=== PATIENT | male | born 1980 | race Caucasian/White ===

== ENCOUNTER → 2017-04-26 09:48 | Outpatient (CLI) | payer OTHER, SELFPAY ==
[2017-04-26 12:14] LABS: Absolute Lymphocyte Count 1.46 X10^3/ul (0.83-4.51); Absolute Neutrophil Count 6.9 X10^3/uL (2.0-7.7); Basophil# 0.04 X10^3/uL; Basophil% 0.4 % (0-1); Eosinophil# 0.39 X10^3/uL; Eosinophils% 4.2 % (0-5); Hematocrit 44.3 % (40-54); Hemoglobin 14.4 g/dl (13.0-16.5); Lymphocyte # 1.46 X10^3/ul (4.0); Lymphocyte % 15.9 % (19-41); Mean Corp Hgb Conc 32.5 g/gl (32-36); Mean Corpuscular Hgb 27.9 pg (27.0-32.0); Mean Corpuscular Volume 85.9 fL (80-94); Mean Platelet Vol. 9.6 fl (6.2-12.0); Monocyte# 0.36 X10^3/uL; Monocyte% 3.9 % (0-10); Neutrophil # 6.92 X10^3/uL (2.7-7.7); Neutrophil % 75.4 % (47-70); Platelet Count 237 K/mm3 (150-450); RBC Distribution Width CV 13.9 % (11.6-14.6); RBC Distribution Width SD 43.5 fl (35.1-43.9); Red Blood Count 5.16 M/mm3 (4.6-6.2); White Blood Count 9.2 K/mm3 (4.4-11.0)
[2017-04-26 12:21] LABS: POSITIVE COUNT NO; POSITIVE DIFFERENTIAL NO; POSITIVE MORPHOLOGY NO
[2017-04-26 12:30] LABS: D-Dimer Quantitative (DVT/PE) < 0.27 FEU/ug/m (0.27-0.49)
== END ==
PROVIDERS: Family Provider Family Medicine; PCP Family Medicine; Visit Provider Family Medicine
DX: R07.9 Chest pain, unspecified (principal)
CPT/HCPCS: 36415; 85025; 85379

== ENCOUNTER 2017-05-22 05:53 | Day surgery (SDC) | payer OTHER, SELFPAY ==
[2017-05-22 06:13] VITALS: BP 150/86; PULSE 79; RESP 14; TEMP 36.3; O2SAT 98; BMI 39.3
[2017-05-22] MEDS: Cefazolin 2 GM in 0.9% Normal Saline 100 ML IV (07:24)
--- NOTE | 2017-05-22 07:30 | RAD_ITS ---
STUDY: X-RAY - RIGHT KNEE REASON FOR EXAM: Postop. TECHNIQUE: A single fluoroscopic view of the knee. COMPARISON: None. FINDINGS: A single AP view demonstrates a pin for anterior cruciate ligament reconstruction. 2 seconds of fluoroscopy time was used. Electronically Signed: Lui Talley MD at 11:17 EDT Tel , Service support , RAD/Knee 1 or 2 Views
--- NOTE | 2017-05-22 07:33 | PCM.DC.ORTHO ---
Discharge Diet: No Restrictions - ttwb right leg, may range knee 0-90, ankle pumps as much as possible and use home ice machine as much as possible, remove dressing in 4 days and apply bandaids to incision, if not draining may get incision wet in shower, call with calf pain or sob or other concerns, start xarelto tonight Discharge Activity: May Not Drive May shower in (days): 1 Ice area for (Minutes): 20 - Every hour while awake. Weight Bearing Status: Weight bearing as tolerated Keep extremity elevated above heart level: Operative Extremity Call your doctor if your incision/area has: Continuous Slow Oozing, Sudden Increased Bleeding, Increased Pain/ Swelling, Increased Redness, Foul Smelling Discharge Call your doctor if you observe: Fever of 101 or Higher, Coldness, Increased Pain, Numbness or Tingling, Change in Color, Calf discomfort Allergies/Adverse Reactions: Allergies No Known Allergies Allergy (Verified 05/15/17 10:02) Medications to take at Discharge Acetaminophen/Codeine #3 [Tylenol #3 Tablet] 1 - 2 tablet PO Q6H PRN PRN #30 tablet 05/22/17 Rivaroxaban [Xarelto] 10 mg PO DAILY #90 tab 05/22/17 Zolpidem Tartrate [Ambien (Generic)] 5 mg PO QHS PRN PRN #14 tablet 05/22/17 The following prescriptions were given: Acetaminophen/Codeine #3 [Tylenol #3 Tablet] 1 - 2 tablet PO Q6H PRN PRN #30 tablet PRN Reason: Pain Rivaroxaban [Xarelto] 10 mg PO DAILY #90 tab Zolpidem Tartrate [Ambien (Generic)] 5 mg PO QHS PRN PRN #14 tablet PRN Reason: Insomnia Primary Care Physician: Saurabh Zavala MD [Primary Care Provider] - Please Follow Up With: Rosette Davidson, DO - [phone]
--- NOTE | 2017-05-22 07:33 | PCM.OPRPT ---
Report of Operation Date of Procedure: 05/22/17 Pre-Operative Diagnosis: right knee acl tear, medial and lateral meniscus tears, osteoarthritis/synovitis Post-Operative Diagnosis: same Surgery/Procedure Performed:: sark, acl reconstruction with allograft, partial medial and lateral meniscectomies, synovectomy Type of Anesthesia:: Block,Regional, General Anesthesiologist: Salomón Ng Estimated Blood Loss (mL): minimal Fluids Replaced: 1500ml lr Description of Procedure: Preop note Patient seen and examined in preoperative holding area. Right leg was marked. Gas risks benefits and alternatives surgery. Patient is in dealing with this for quite some time had a work injury ACL tear and he was bone grafted and now he comes back for his revision ACL surgery. On MRI of questionable new versus old medial and/or lateral meniscus tears. We did get a CAT scan that showed that he had good bone growth and fellow of his tunnels. Risks including but not limited to blood loss, blood clot, infection, neurovascular injury, failure procedure, loss of life and loss of limb. 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 We will proceed with right knee arthroscopy ACL reconstruction with allograft repair is indicated. We also did discuss the wrist with allograft hepatitis C HIV etc. patient is aware like proceed as aforementioned. Operative note Patient seen and examined holding area. Right knee was marked. Patient is brought to the operating room placed supine on the operating room table. Signing, anesthesia, antibiotics were administered. All bony prominences well-padded SCDs placed on his contralateral limb. The right leg was prepped and draped in usual sterile fashion with a tourniquet around his upper thigh. We used his previous incision for our diagnostic arthroscopy. The leg was elevated exsanguinated and tourniquet was raised her pressure of 250 torr. Timeout was performed. We then used an 11 blade to create her anterior lateral portal we began our diagnostic arthroscopy. He has some fibrillated changes in the inferior pole of his patella the rest of his patellofemoral joint was intact. We then moved to the medial joint line created our anterior medial portal under direct visualization. We are then able to insert the probe and noted that he had good residual remnant meniscus however is a little bit of fraying so we did debride that with a combination of a shaver and basket. We reinserted the probe to ensure that we had good relief remaining meniscus which we did have. We then moved to the notch. The ACL was obviously torn there is some hypertrophic scarring the PCL is present within the notch. We then use a combination of a shaver and a burner and a bur to perform a notchplasty. We then moved to the lateral joint line. There is a slight lateral disc tear at the mid body. This was gently resected back with a basket and shaver as well to stable rim. We then reinserted a probe to ensure that we had stability less than which we did have. Patient had extensive synovitis and scarring as this was his third surgery for this injury. This did quite take a quite a bit of time to resect back the scar tissue. The back on the back table the ACL was repaired in standard technique. We used a nonirradiated allograft that was measured to be 8.5 in the back table. We then prepared our femoral tunnel in standard fashion using a flip cutter and making a small incision on the lateral femoral distal femur in standard technique the ring back about 25 mm we then drilled our tibial tunnel. We irrigated with copious amounts of sterile saline ensuring that we had all bony debris removed we visualized both the femoral and tibial tunnels ensure we had good bony cortex and then we had a great on back wall and the femoral side as well. We then placed our graft through into and flipped the button on the lateral femoral cortex we also took fluoroscopy to ensure that we had flipped it on that was in position on the lateral femoral cortex which it was. We then cycled the graft 25 times and then pulling distally with the graft and with a posterior drawer we placed our 9 x 28 by composite bio composite screw. Please note that prior to this we did extend the knee noted we had no impingement anteriorly and full extension. We then went back into the need to ensure that we had good stability of our repair and that there is no encroachment of the joint with a screw which we did not have. Again the knee was irrigated with copious amounts of sterile saline. The remnant residual ACL graft was truncated at the distal end and the incision closed with deep 2-0 Vicryl interrupted 4-0 running Monocryl and the portals were closed with interrupted 4-0 nylon suture sterile dressings and a brace locked in extension was placed. Patient may move brace 0-90?. Patient received a postoperative regional block in the OR. Tourniquet was deflated for total working time of 80 minutes. Patient tolerated procedure well there are no comp occasions. Patient transferred to the recovery room in stable condition Postoperative note Weightbearing right leg for 2 weeks May move leg 0-90 as tolerated next Call with increased pain numbness tingling or further issues or arise Follow-up in 2 weeks Start Xarelto given Ambien and Tylenol 3 as well Discussed as he is a risk for another blood clot that he should really encouraged ankle pumps and moving as much as possible and to call if he has any increased calf pain or other concerns. This note was generated with [employer] dictation software. It may contain incorrect words, spelling, and punctuation that were not noted in checking the note before signing. Grafts/Implants Used: arthrex tight rope, 9x28 tibial biocomposite screw
[2017-05-22] MEDS: Mupirocin Ointment 22gm Tube 1 APPLIC (09:17)
[2017-05-22 09:43] VITALS: BP 138/93; BP 150/86; PULSE 94; RESP 16; TEMP 36.3; O2SAT 94
[2017-05-22 10:00] VITALS: BP 125/76; BP 150/86; PULSE 83; RESP 16; O2SAT 92
[2017-05-22 10:15] VITALS: BP 128/74; BP 150/86; PULSE 88; RESP 16; O2SAT 92
[2017-05-22 10:31] VITALS: BP 123/71; BP 150/86; PULSE 84; RESP 16; TEMP 36.3; O2SAT 100
[2017-05-22 11:15] VITALS: BP 150/86
== END 2017-05-22 11:20 | disposition home or self-care (01) ==
LOC: SDC 05:55 → AC 05:56
PROVIDERS: Family Provider Family Medicine; PCP Family Medicine; Visit Provider Orthopaedic Surgery
PROC: (CPT 29888; principal; 2017-05-22 07:10)
DX: S83.241A Other tear of medial meniscus, current injury, right knee, initial encounter (principal); S83.281A Other tear of lateral meniscus, current injury, right knee, initial encounter; M17.11 Unilateral primary osteoarthritis, right knee; M65.9 Synovitis and tenosynovitis, unspecified; Z86.718 Personal history of other venous thrombosis and embolism; X58.XXXA Exposure to other specified factors, initial encounter; Y93.89 Activity, other specified; Y92.89 Other specified places as the place of occurrence of the external cause; Y99.0 Civilian activity done for income or pay
CPT/HCPCS: 29880; 29888; 73560; 76000; J7120; J2405

== ENCOUNTER 2017-05-31 14:56 | Emergency (ER) | payer OTHER, SELFPAY ==
[2017-05-31 14:57] VITALS: BP 147/97; PULSE 115; PULSE 122; RESP 16; TEMP 36.5; O2SAT 98; BMI 38.1
--- NOTE | 2017-05-31 15:23 | VDLE_ITS ---
Reason For Study: LEG PAIN RIGHT GSV is normal. CFV is compressible, spontaneous, phasic, competent and demonstrates normal augmentation. FV is compressible, spontaneous, phasic, competent and demonstrates normal augmentation. POP V is compressible, spontaneous, phasic, competent and demonstrates normal augmentation. T/P Trunk is compressible. PTV is compressible. RT PerV is compressible. Procedure Exam performed portable in ED. A preliminary report was called and/or faxed to Dr. Ram. Interpretation Summary Deep veins of the right lower extremity are patent and compressible segmentally. There is no evidence of right lower extremity deep vein thrombosis. Valvular competence appears intact within the proximal deep venous system on the right . The right greater saphenous vein appears patent and compressible segmentally. Ordering Physician: Temo Ram Referring Physician: Rosette Davidson Performed By: Hortencia Avelar RVT
--- NOTE | 2017-05-31 15:31 | ED.DCSUM_ITS ---
- ER Visit Summary Date of Service: 05/31/17 Chief Complaint: Possible DVT History of Present Illness: The patient is a 36 M who had ACL surgery on May [address] Davidson. The surgical site has been doing well. No pain in his knee. He does report pain in his right calf. He has a history of DVT. He is currently on Xarelto. No shortness of breath or chest pain. No cough or hemoptysis. Physical Examination: Vital signs unremarkable for heart rate of 122. Afebrile. Alert and oriented and in no acute distress. Breathing comfortably. Surgical site appears normal. Skin appears normal. Good range of motion. Neurovascular intact distally. He does have some tenderness into his right calf. No significant edema noted. Test Results: Ultrasound pending. Emergency Department Course and Treatment: Patient declined pain medicine while awaiting results. I am not concerned for infection, fracture, or problems directly related to the surgery. This could be myofascial pain, but we will check the ultrasound. Ultrasound was negative. I believe the pain is in his muscle or it may be from his brace. Continue his meds and follow-up with his doctor as planned. Treatment Plan: As above Disposition: Discharged Impression: 1. Right calf pain This note was generated with [employer] dictation software. It may contain incorrect words, spelling, and punctuation that were not noted in review of the chart prior to signing ED Disposition - Plan for ED Patient: Chief Complaint: Lower Extremity Injury Referrals: Saurabh Zavala MD [Primary Care Provider] -
--- NOTE | 2017-05-31 15:51 | ED.DEP ---
ED Disposition - Plan for ED Patient: Chief Complaint: Lower Extremity Injury Instructions: ED DVT Referrals: Saurabh Zavala MD [Primary Care Provider] - Rosette Davidson DO [STAFF PHYSICIAN] -
[2017-05-31 16:09] VITALS: BP 117/52; PULSE 84; RESP 16; O2SAT 97
== END 2017-05-31 16:11 | disposition home or self-care (01) ==
LOC: ED 15:24
PROVIDERS: Emergency Provider Emergency Medicine; Family Provider Family Medicine; PCP Family Medicine
DX: M79.661 Pain in right lower leg (principal); Z98.890 Other specified postprocedural states; Z86.718 Personal history of other venous thrombosis and embolism; Z79.02 Long term (current) use of antithrombotics/antiplatelets
CPT/HCPCS: 93971; 99282

== ENCOUNTER 2017-06-19 14:07 | Emergency (ER) | payer OTHER, SELFPAY ==
[2017-06-19 14:08] VITALS: BP 154/110; PULSE 80; RESP 18; TEMP 36.6; O2SAT 98; BMI 37.8
--- NOTE | 2017-06-19 14:24 | VDLE_ITS ---
Reason For Study: RLE Pain RIGHT LEFT GSV is normal. CFV is compressible, spontaneous, phasic, CFV is compressible, spontaneous, phasic, competent, and demonstrates normal competent and demonstrates normal augmentation. augmentation. FV is compressible, spontaneous, phasic, competent and demonstrates normal augmentation. POP V is compressible, spontaneous, phasic, competent and demonstrates normal augmentation. T/P Trunk is compressible. PTV is compressible. RT PerV is compressible. Procedure Exam performed portable in ED. A preliminary report was called and/or faxed to Dr. Zhao. Interpretation Summary Deep veins of the right lower extremity are patent and compressible segmentally. There is no evidence of right lower extremity deep vein thrombosis. Valvular competence appears intact within the proximal deep venous system on the right . The right greater saphenous vein appears patent and compressible segmentally. Ordering Physician: Jose Armando Zhao Referring Physician: Saurabh Zavala Performed By: Maricruz Patel RDCS, RVT
--- NOTE | 2017-06-19 14:41 | NURSING ---
CALLED VASCULAR LAB, THEY WILL BE OVER AFTER THE 1500 APPT
--- NOTE | 2017-06-19 15:58 | ED.VISSUMM ---
- ER Visit Summary Date of Service: 06/19/17 Chief Complaint: Right calf pain History of Present Illness: The patient is a [address] Saurabh Oconnell and Dr. Davidson. He had a right ACL repair by Dr. Davidson on May 20. Reports that he was doing well until today when he had an episode of pain in his right calf while walking. He describes as a dull pain is 510 at worst and is pain-free currently. States this is similar to when he had a DVT in the past. However, the patient is on 10 mg of Xarelto a day and began this May 21. Physical Examination: Vitals: Stable. Afebrile. General: Well-nourished and well-developed. Head: Normocephalic atraumatic. Neck: Supple, no lymphadenopathy. No JVD. Nontender. Cardiovascular: Regular rate and rhythm. No murmurs. Respiratory: No respiratory distress. Clear to auscultation bilaterally. Abdominal: Soft, nontender, nondistended, normal bowel sounds. No guarding, rebound, or peritoneal signs. Back: Nontender. Extremities: Nontender, no edema. Incisions on the right knee are clean, dry, and intact. There is no erythema or warmth. No tenderness to palpation. Skin: Normal color, no rash. Neurologic: Alert and oriented ?3. Cranial nerves II through XII are intact. Normal strength and sensation. Psych: Normal affect. Test Results: Right lower extremity Doppler was negative. Emergency Department Course and Treatment: Patient was reassured. He refused pain medications. Treatment Plan: Patient will be discharged instructions to follow Dr. Davidson as previously scheduled. Disposition: To home in improved and stable condition. Impression: 1. 1 month status post right ACL repair. 2. Right calf pain. This note was generated with [employer] dictation software. It may contain incorrect words, spelling, and punctuation that were not noted in review of the chart prior to signing ED Disposition - Plan for ED Patient: Disposition: Home or Assisted Living Chief Complaint: Lower Extremity Injury Instructions: ED Muscle Aching Referrals: Rosette Davidson DO [STAFF PHYSICIAN] - Keep Jason appointment
[2017-06-19 16:27] VITALS: BP 118/79; PULSE 64; RESP 17; O2SAT 97
== END 2017-06-19 16:28 | disposition home or self-care (01) ==
LOC: ED 14:53
PROVIDERS: Emergency Provider Emergency Medicine; Family Provider Family Medicine; PCP Family Medicine
DX: M79.661 Pain in right lower leg (principal); Z98.890 Other specified postprocedural states; Z86.718 Personal history of other venous thrombosis and embolism; Z79.02 Long term (current) use of antithrombotics/antiplatelets; Z79.899 Other long term (current) drug therapy
CPT/HCPCS: 93971; 99282

== ENCOUNTER 2017-08-14 10:30 | Outpatient (RCR) | payer OTHER, SELFPAY ==
--- NOTE | 2017-06-30 12:24 | HP.PTEVAL ---
Patient's Visit Information CASSIA ZENG Jr. is a 37 year old M referred to Physical Therapy by Rosette Davidson DO with a diagnosis of SPRAIN ANTERIOR CRUCIATE LIGAMNET RIGHT KNEE. Date of Evaluation: 06/28/17 Physical Therapist: Hudson Mcclain PT, - Visit Plan Frequency: 3x /Week Duration: 6 Weeks Plan: * SEE PROTOCAL GUIDELINES FOR ACL CONSTRUCTION*. S/P ACL RECONSTRUCTION WITH ALLOGRAFT May --4WEEKS POST OP JULY 01. --MAY USE FES TO QUAD-- - Subjective Subjective: This 37 y/o male presents to physical therapy with penelope anrterior cruciate ligamnent right knee. Patient underwent s/p ACL reconstruction allograft and menisectomy medial/lateral May done by Dr Skinner at [facility] . Patient d/c to home with NWB with crutches 2weeks,June 04 WBAT with crutches knee brace locked. Patient weaned self from crutches .Patient brace locked when walking or sleeping .Denies parathesia/tingling.Patient had venous doppler test to r/o DVT due pain iin calf which eas negative. 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 Seen DR Davidson seen prevous MRI showed ACL tear. Patient had prior PT before surgery for ROM/strength. Patient impairments affects quality of life and RTW . Patient is on light duty.Patient stairs one steps at a time. 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 SOCIAL: single. HOBBIES: hunting /golfing - Pain Right Knee Pain Intensity (Out of 10): 0 Pain Intensity Range: 10 - Objective POSTURE: WFL. GAIT: ambulates with KNEE brace locked slight decrease stance. NEURO: inact. EDEMA: 43 cm joint line. QUAD ATROPHIED: 6 above 50.3 cm. AROM:3-110 SUPINE KNEE FLEXION. QUAD SET: poor. PROPRIOCEPTION : poor. MMT:quads 3+/5/hams 4-/5,hip flexion/abduction 4-/5 ,ankle 4/5. FLEXABLITY : HAMS MIN TIGHT - Goals Goal 1:: Independant with HEP per protocal. Goal Time Frame: 8-12 Weeks Goal 2:: Patient ambulate with normal gutierrez swing phase receproca pattern Goal Time Frame: 12-16 Weeks Goal 3:: Patient to improve knee right symmtrical left to asend/desend 12 steps alternating. Goal Time Frame: 12-16 Weeks Goal 4:: Patient increase strength og quads/hams/hip 5/5 to improve function with RTW. Goal Time Frame: 12-16 Weeks Goal 5:: Patient to improve proprioception and motor control to normal Goal Time Frame: 12-16 Weeks Goal 6:: Patient to return to job demands and [place] chores with no limitations. Goal Time Frame: 12-16 Weeks - Rehabilitation Potential Physical Therapy Diagnosis: Patient underwent s/p ACL reconstruction Aprril . Intailly,patient was NWB RLE knee immoblizer with knee brace locked progressed with WBAT with no crutches knee brace locked. Patient has current impairments with decrease ROM ,strength ,prioprioception ,gait. and RTW thus benifit from skilled PT. Rehabilitation Potential: Good - Anticipated Interventions Patient/Client Instruction: Educate patient on: Condition, Plan of Care, Risk Factors For the Purpose of:: To decrease pain, To increase ROM, To improve muscle performance and motor function, To improve ability to perform ADL's, To increase tolerance to activity/condition/position, To improve performance and independence with ADL's, To improve ability of physical actions for home/community/work/leisure, To improve health of tissue, To decrease soft tissue restriction, To increase flexibility/ROM, To improve balance, To improve ability to perform tasks related to life management Therapeutic Exercise to Include: Strength training, Power training, Endurance training, Balance training, Coordination, Flexibilty training, Gait and locomotor training, Passive ROM, Active ROM Comment: SEE PROTOCAL AND GUIDELINE For the Purpose of:: To decrease pain, To increase ROM, To improve muscle performance and motor function, To improve ability to perform ADL's, To increase tolerance to activity/condition/position, To improve ability of physical actions for home/community/work/leisure, To improve gait and locomotor functions, To improve health of tissue, To decrease soft tissue restriction, To increase flexibility/ROM, To improve endurance, To improve balance, To improve ability to perform tasks related to life management Functional electric stimulation: Yes TENS: Yes IF ES: Yes Cryotherapy (ice pack, ice massage): Yes Thermo therapy (hot pack): Yes For the Purpose of:: To decrease pain, To increase ROM, To improve muscle performance and motor function, To increase tolerance to activity/condition/position, To improve ability of physical actions for home/community/work/leisure, To improve health of tissue, To decrease soft tissue restriction, To increase flexibility/ROM, To improve endurance, To improve balance, To improve ability to perform tasks related to life management Thank you for the opportunity to evaluate your patient. For Medicare and Medicare HMO plans, please review the plan of care and approve it. It will need to be FAXED BACK to us at [phone] for Medicare purposes. Please let me know if there are questions or concerns regarding this plan of care. Physician Signature: Date:
--- NOTE | 2017-06-30 12:31 | HP.PTEVAL ---
Patient's Visit Information CASSIA ZENG Jr. is a 37 year old M referred to Physical Therapy by Rosette Davidsno DO with a diagnosis of SPRAIN ANTERIOR CRUCIATE LIGAMNET RIGHT KNEE. Date of Evaluation: 06/28/17 Physical Therapist: Hudson Mcclain PT, - Visit Plan Frequency: 3x /Week Duration: 6 Weeks Plan: * SEE PROTOCAL GUIDELINES FOR ACL CONSTRUCTION*. S/P ACL RECONSTRUCTION WITH ALLOGRAFT May --6 WEEKS POST OP JULY 03. --MAY USE FES TO QUAD-- - Subjective Subjective: This 37 y/o male presents to physical therapy with penelope anrterior cruciate ligamnent right knee. Patient underwent s/p ACL reconstruction allograft and menisectomy medial/lateral May done by Dr Skinner at [facility] . Patient d/c to home with NWB with crutches 2weeks,June 04 WBAT with crutches knee brace locked. Patient weaned self from crutches .Patient brace locked when walking or sleeping .Denies parathesia/tingling.Patient had venous doppler test to r/o DVT due pain iin calf which eas negative. 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 Seen DR Davidson seen prevous MRI showed ACL tear. Patient had prior PT before surgery for ROM/strength. Patient impairments affects quality of life and RTW . Patient is on light duty.Patient stairs one steps at a time. 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 SOCIAL: single. HOBBIES: hunting /golfing - Pain Right Knee Pain Intensity (Out of 10): 0 Pain Intensity Range: 10 - Objective POSTURE: WFL. GAIT: ambulates with KNEE brace locked slight decrease stance. NEURO: inact. EDEMA: 43 cm joint line. QUAD ATROPHIED: 6 above 50.3 cm. AROM:3-110 SUPINE KNEE FLEXION. QUAD SET: poor. PROPRIOCEPTION : poor. MMT:quads 3+/5/hams 4-/5,hip flexion/abduction 4-/5 ,ankle 4/5. FLEXABLITY : HAMS MIN TIGHT - Goals Goal 1:: Independant with HEP per protocal. Goal Time Frame: 8-12 Weeks Goal 2:: Patient ambulate with normal gutierrez swing phase receproca pattern Goal Time Frame: 12-16 Weeks Goal 3:: Patient to improve knee right symmtrical left to asend/desend 12 steps alternating. Goal Time Frame: 12-16 Weeks Goal 4:: Patient increase strength of quads/hams/hip 5/5 to improve function with RTW. Goal Time Frame: 12-16 Weeks Goal 5:: Patient to improve proprioception and motor control to normal Goal Time Frame: 12-16 Weeks Goal 6:: Patient to return to job demands and [employer] chores with no limitations. Goal Time Frame: 12-16 Weeks - Rehabilitation Potential Physical Therapy Diagnosis: Patient underwent s/p ACL reconstruction May . Intailly,patient was NWB RLE knee immoblizer with knee brace locked progressed with WBAT with no crutches knee brace locked. Patient has current impairments with decrease ROM ,strength ,prioprioception ,gait. and RTW thus benifit from skilled PT. Rehabilitation Potential: Good - Anticipated Interventions Patient/Client Instruction: Educate patient on: Condition, Plan of Care, Risk Factors For the Purpose of:: To decrease pain, To increase ROM, To improve muscle performance and motor function, To improve ability to perform ADL's, To increase tolerance to activity/condition/position, To improve performance and independence with ADL's, To improve ability of physical actions for home/community/work/leisure, To improve health of tissue, To decrease soft tissue restriction, To increase flexibility/ROM, To improve balance, To improve ability to perform tasks related to life management Therapeutic Exercise to Include: Strength training, Power training, Endurance training, Balance training, Coordination, Flexibilty training, Gait and locomotor training, Passive ROM, Active ROM Comment: SEE PROTOCAL AND GUIDELINE For the Purpose of:: To decrease pain, To increase ROM, To improve muscle performance and motor function, To improve ability to perform ADL's, To increase tolerance to activity/condition/position, To improve ability of physical actions for home/community/work/leisure, To improve gait and locomotor functions, To improve health of tissue, To decrease soft tissue restriction, To increase flexibility/ROM, To improve endurance, To improve balance, To improve ability to perform tasks related to life management Functional electric stimulation: Yes TENS: Yes IF ES: Yes Cryotherapy (ice pack, ice massage): Yes Thermo therapy (hot pack): Yes For the Purpose of:: To decrease pain, To increase ROM, To improve muscle performance and motor function, To increase tolerance to activity/condition/position, To improve ability of physical actions for home/community/work/leisure, To improve health of tissue, To decrease soft tissue restriction, To increase flexibility/ROM, To improve endurance, To improve balance, To improve ability to perform tasks related to life management Thank you for the opportunity to evaluate your patient. For Medicare and Medicare HMO plans, please review the plan of care and approve it. It will need to be FAXED BACK to us at [phone] for Medicare purposes. Please let me know if there are questions or concerns regarding this plan of care. Physician Signature: Date:
--- NOTE | 2017-11-15 13:33 | HP.PT.NRP ---
HP - Discharge Summary (1) - Patient Information CASSIA ZENG Jr. was seen in my office for initial evaluation on 06/28/17. The following Plan of Care was established for this patient: Initial Frequency: 3x /Week Initial Duration: 6 Weeks - Anticipated Interventions Patient/Client Instruction: Educate patient on: Condition, Plan of Care, Risk Factors For the Purpose of:: To decrease pain, To increase ROM, To improve muscle performance and motor function, To improve ability to perform ADL's, To increase tolerance to activity/condition/position, To improve performance and independence with ADL's, To improve ability of physical actions for home/community/work/leisure, To improve health of tissue, To decrease soft tissue restriction, To increase flexibility/ROM, To improve balance, To improve ability to perform tasks related to life management Therapeutic Exercise to Include: Strength training, Power training, Endurance training, Balance training, Coordination, Flexibilty training, Gait and locomotor training, Passive ROM, Active ROM For the Purpose of:: To decrease pain, To increase ROM, To improve muscle performance and motor function, To improve ability to perform ADL's, To increase tolerance to activity/condition/position, To improve ability of physical actions for home/community/work/leisure, To improve gait and locomotor functions, To improve health of tissue, To decrease soft tissue restriction, To increase flexibility/ROM, To improve endurance, To improve balance, To improve ability to perform tasks related to life management Functional electric stimulation: Yes TENS: Yes IF ES: Yes Cryotherapy (ice pack, ice massage): Yes Thermo therapy (hot pack): Yes For the Purpose of:: To decrease pain, To increase ROM, To improve muscle performance and motor function, To increase tolerance to activity/condition/position, To improve ability of physical actions for home/community/work/leisure, To improve health of tissue, To decrease soft tissue restriction, To increase flexibility/ROM, To improve endurance, To improve balance, To improve ability to perform tasks related to life management This patient was last seen in our office 08/14/17. Pertinent comments regarding their Physical therapy will appear below: Patient seen for PT for ACL reconstruction for 18 visits with ROM/STRENGTH/PROPRIOCEPTION per protocal guidelines. Patient received another C-9,but on hold due to injurting toe. Patient at this point is d/c. At this point I will be discontinuing this patient from physical therapy. I would be happy to see this patient again in the future if found appropriate by the physician. Thank you! Hudson Mcclain, PO[place],
== END 2017-08-14 19:00 | disposition home or self-care (01) ==
LOC: PT 10:30
PROVIDERS: Family Provider Family Medicine; PCP Family Medicine; Visit Provider Orthopaedic Surgery
DX: S83.511D Sprain of anterior cruciate ligament of right knee, subsequent encounter (principal)
CPT/HCPCS: 97110; 97161

== ENCOUNTER → 2017-08-30 16:40 | Outpatient (CLI) | payer OTHER, SELFPAY ==
[2017-08-30 20:36] LABS: M R Staph aureus DNA By PCR Negative (Negative); Probe Check PASS; Specimen Processing Control PASS; Staph aureus DNA By PCR NEGATIVE (Negative)
== END ==
PROVIDERS: Family Provider Family Medicine; PCP Family Medicine; Visit Provider Podiatrist
DX: S92.424B Nondisplaced fracture of distal phalanx of right great toe, initial encounter for open fracture (principal); M79.674 Pain in right toe(s)
CPT/HCPCS: 87070; 87205; 87640

== ENCOUNTER 2018-02-17 16:30 | Outpatient (RCR) | payer OTHER, SELFPAY ==
--- NOTE | 2018-01-15 17:37 | HP.PTEVAL ---
Patient's Visit Information CASSIA ZENG Jr. is a 37 year old M referred to Physical Therapy by Rosette Davidson DO with a diagnosis of R ACL reconstruction. Date of Evaluation: 01/10/18 Physical Therapist: Tristan Byrne - Visit Plan Frequency: 2-3x /Week Duration: 6 Weeks Plan: Start with quad, HS, and glute med strengthening. Progress to eccentric strengthening as tolerated. - Subjective Findings: Pt. is here today for his initial evaluation with diagnosis of R ACL reconstruction. Pt. had surgery on 05/22/17. He was previously recieving PT for ROM and strengthening, but had to spot PT due to a foot fracture. He did recieve a new C9 for continued strengthening. 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 He denies N/T, no pain, no difficulty sleeping, but is not back to recreational activities yet. Pt. reports that he no longer has any pain, but does occassionally notice some increased weakness. Pt. is hopeful to increase strength in order to get back to all work and recreational activiteis without issues. - Objective POSTURE: Pt. has normal posture in stance. Pt. has no valgus positioning. Pt. has normal iliasc crest positioning. PALPATION: Pt. has no pain with palpation throghout R knee and calf. NEURO: Pt. has normal sensation and DTR of bilateral achilles/patellar DTR. ROM: R knee 0-0-129deg. L knee 0-0-134deg. MMT: RLE- lianet 5/5 throughout; knee- ext 5-/5, flexion 5-/5; hip- flexion 5-/5, abd 4+/5, ext 4+/5. Core strength- fair;. GAIT: Pt. has normal gait pattern without increae in symptoms. STAIRS: Pt. is able to complete with reciprocal pattern without increase in symptoms. SQUAT: Slight L lateral lean. SLS squat- difficulty with controlled eccentric motion, increased valgus positioning. - Goals Goal 1:: Pt. to be I with HEP. Goal Time Frame: 4-6 Weeks Goal 2:: Pt. to have increased RLE strength by 1/2 grade of all effected musculature. Goal Time Frame: 4-6 Weeks Goal 3:: Pt. to return to all work activities without increase in symptoms. Goal Time Frame: 4-6 Weeks Goal 4:: Pt. to perform a SLS without visible weakness. - Rehabilitation Potential Physical Therapy Diagnosis: Pt. had a R ACL reconstruction and as subsequent weakness. He would benefit from continued strengthening, both quads and HS in eccentric fashion. Pt. would benefit from further work like strengthening to progress back to full work capacity. Rehabilitation Potential: Excellent - Anticipated Interventions Patient/Client Instruction: Educate patient on: Condition, Plan of Care, Risk Factors, Benefits of Fitness Program For the Purpose of:: To facilitate caregiver knowledge, To improve self management, To prevent re-injury, To improve ability to perform tasks related to life management, To improve tolerance to ADL's Therapeutic Exercise to Include: Strength training, Power training, Endurance training, Balance training, Flexibilty training, Gait and locomotor training, Passive ROM, Active ROM For the Purpose of:: To increase ROM, To improve nutrient delivery to tissue, To increase oxygenation perfusion, To improve muscle performance and motor function, To improve gait and locomotor functions, To improve health of tissue, To decrease soft tissue restriction, To increase flexibility/ROM, To improve endurance, To improve balance Thank you for the opportunity to evaluate your patient. For Medicare and Medicare HMO plans, please review the plan of care and approve it. It will need to be FAXED BACK to us at [phone] for Medicare purposes. For Medicare only, by signing this I certify the plan of care. Please let me know if there are questions or concerns regarding this plan of care. Physician Signature: Date:
--- NOTE | 2018-05-19 18:20 | HP.PTDCSUM ---
HP - PT D/C Summary It has been my pleasure to treat CASSIA ZENG Jr. under orders from Rosette Davidson DO, for the diagnosis of R ACL reconstruction for a total of 12 visit(s). Discharge Date: 02/17/18 Please see the following information for a summary of their discharge status. - Subjective Subjective: Pt. reports that he is no longer having any issues. He feels that is strength is back to normal. Pt. reports no issues with all work activities. - Overall Improvement % Improvement: 99 - Objective Objective/Function: Pt. has full strength throughout BLEs. Pt. reports no issues with squating and all work related activiteis. Pt. has a good HEP and has been independent without issues. Pt. will be DC from PT at this point int yareli. - Goals Goal 1:: Pt. to be I with HEP. Goal Progress: Goal Met Goal 2:: Pt. to have increased RLE strength by 1/2 grade of all effected musculature. Goal Progress: Goal Met Goal 3:: Pt. to return to all work activities without increase in symptoms. Goal Progress: Goal Met Goal 4:: Pt. to perform a SLS without visible weakness. Goal Progress: Goal Met - Plan Plan: DC to HEP. - D/C Information Discharge Comments: Pt. was treated for his ACL post recovery. Pt. was treated with higher end level of strengthenign progressing to functional strengthening. Pt. is no longer having any issues and will be DC from PT at this point in time. If there are questions or concerns regarding this patient's physical therapy, please feel free to call me at [phone]. Thank you for the referral of this patient. Sincerely, Tristan Byrne DPT
== END 2018-02-17 19:00 | disposition home or self-care (01) ==
LOC: PT 16:30
PROVIDERS: Family Provider Family Medicine; PCP Family Medicine; Referring Provider Orthopaedic Surgery; Visit Provider Orthopaedic Surgery
DX: S83.511D Sprain of anterior cruciate ligament of right knee, subsequent encounter (principal)
CPT/HCPCS: 97110; 97164

== ENCOUNTER → 2018-03-11 09:18 | Outpatient (CLI) | payer OTHER, SELFPAY ==
[2018-03-17 16:08] LABS: Dilute Prothrombin Time (dPT) 50.3 sec (0.0-55.0); Dilute Russell Viper Venom 41.7 sec (0.0-47.0); PTT-LA 39.8 sec (0.0-51.9); Thrombin Time 17.4 sec (0.0-23.0); dPT Confirm Ratio 0.94 Ratio (0.00-1.40)
[2018-03-18 12:45] LABS: Hep B Surface Antibodies Non Reactive (.); Interpretation Comment: (.); Protein C Antigen 99 % (60-150); Protein S, Free 95 % (57-157); Protein S, Total 85 % (60-150)
--- OUTSIDE RECORDS SUMMARY | 2018-05-13 10:04 | XMS RPT_ITS ---
:1980 Author Organization OHIP Support Name Relationship Address Phone KELI ZENG Unavailable [address] + [place] [address] [facility] Unavailable [address] + [place] [address] CASSIA ZENG/CATIE Unavailable [address] + [place] [address] [facility] Unavailable [address] + [place] [address] CASSIA ZENG/CATIE Unavailable [address] + [place] [address] [facility] Unavailable [address] + [place] [address] CASSIA ZENG/CATIE Unavailable [address] + [place] [address] [facility] Unavailable [address] + [place] [address] CASSIA ZENG/CATIE Unavailable [address] + [place] [address] [facility] Unavailable [address] + [place] [address] AZUCENA, CASSIA/CATIE Unavailable [address] + [place] [address] [facility] Unavailable [address] + [place] [address] AZUCENA, CASSIA/CATIE Unavailable [address] [phone] [place] [address] [facility] Unavailable [address] + [place] [address] FUNK, CASSIA/CATIE Unavailable [address] [phone] [place] [address] [facility] Unavailable [address] + [place] [address] FUNKELI Kim Unavailable [address] [phone] [place] [address] [facility] Unavailable [address] + [place] [address] FUNKELI Kim Unavailable [address] [phone] [place] [address] [facility] Unavailable [address] + [place] [address] KELI ZENG Unavailable [address] [phone] [place] [address] [facility] Unavailable [address] + [place] [address] FUNKELI Kim Unavailable [address] [phone] [place] [address] [facility] Unavailable [address] + [place] [address] KEIL ZENG Unavailable [address] [phone] [place] [address] [facility] Unavailable [address] + [place] [address] FUNKELI Kim Unavailable [address] [phone] [place] [address] [facility] Unavailable [address] + [place] [address] FUNELVIRA KimTE Unavailable [address] [phone] [place] [address] [facility] Unavailable [address] + [place] [address] FUNKELVIRATE Unavailable [address] [phone] [place] [address] [facility] Unavailable [address] + [place] [address] Care Team Providers Name Role Phone Saurabh Zavala Attending Unavailable Zavala, Saurabh Primary Care Unavailable Zavala, Saurabh Attending Unavailable Zavala, Saurabh Primary Care Unavailable Chicorelli, Rosette Attending Unavailable Zavala, Saurabh Referring Unavailable Zavala, Saurabh Primary Care Unavailable Chicorelli, Rosette Attending Unavailable Zavala, Saurabh Primary Care Unavailable Chicorelli, Rosette Referring Unavailable Chicorelli, Rosette Attending Unavailable Zavala, Saurabh Referring Unavailable Zavala, Saurabh Primary Care Unavailable Zavala, Saurabh Primary Care Unavailable Temo Ram Attending Unavailable Chicorelli, Rosette Attending Unavailable Zavala, Saurabh Referring Unavailable Zavala, Saurabh Primary Care Unavailable Chicorelli, Rosette Attending Unavailable Chicorelli, Rosette Attending Unavailable Zavala, Saurabh Referring Unavailable Zavala, Saurabh Primary Care Unavailable Jose Armando Zhao Attending Unavailable Chicorelli, Rosette Attending Unavailable Chicorelli, Rosette Referring Unavailable Zavala, Saurabh Primary Care Unavailable Chicorelli, Rosette Attending Unavailable Zavala, Saurabh Referring Unavailable Zavala, Saurabh Primary Care Unavailable Chicorelli, Rosette Attending Unavailable Zavala, Saurabh Referring Unavailable Zavala, Saurabh Primary Care Unavailable Leighton Turner Attending Unavailable Johnny, Leighton Referring Unavailable Zavala, Saurabh Primary Care Unavailable Chicorelli, Rosette Attending Unavailable Zavala, Saurabh Referring Unavailable Zavala, Saurabh Primary Care Unavailable Chicorelli, Rosette Attending Unavailable Chicorelli, Rosette Referring Unavailable Zavala, Saurabh Primary Care Unavailable PROBLEMS PROBLEMS DATE TYPE CONDITION / CODE ATTENDING STATUS SOURCE 03/12/2018 Unknown Z86.718 - Personal Saurabh Zavala Active [place] history of other [facility] venous thrombosis Hospital and embolism / Repository Z86.718(ICD-10) 02/17/2018 Unknown S83.511D - Sprain of Chicorelli, Active [place] anterior cruciate [facility] ligament of right Hospital knee, subsequent Repository encounter / S83.511D(ICD-10) 12/24/2017 Unknown Z98.890 - Other Chicorelli, Active [place] specified [facility] postprocedural Hospital states / Repository Z98.890(ICD-10) 09/25/2017 Unknown S92.424B - Leighton Turner Active [place] Nondisplaced Community fracture of distal Hospital phalanx of right Repository great toe, initial encounter for open fracture / S92.424B(ICD-10) 05/28/2017 Unknown Z47.89 - Encounter Chicorelli, Active [place] for other orthopedic [facility] aftercare / Hospital Z47.89(ICD-10) Repository 05/28/2017 Unknown R21 - Rash and other Chicorelli, Active [place] nonspecific skin [facility] eruption / Hospital R21(ICD-10) Repository 06/10/2017 Unknown S83.241A - Other Chicorelli, Active [place] tear of medial [facility] meniscus, current Hospital injury, right knee, Repository initial encounter / S83.241A(ICD-10) 06/10/2017 Unknown S83.281A - Other Chicorelli, Active [place] tear of lateral [facility] meniscus, current Hospital injury, right knee, Repository initial encounter / S83.281A(ICD-10) 06/10/2017 Unknown M17.11 - Unilateral Ch[place]orelli, Active [place] primary [facility] osteoarthritis, Hospital right knee / Repository M17.11(ICD-10) 04/26/2017 Unknown R07.9 - Chest pain, Saurabh Zavala Active [facility] unspecified / Community R07.9(ICD-10) Hospital Repository PROCEDURES PROCEDURES No Procedure Records FoundRESULTS RESULTS INITAL EVALUATION (1) Observed: 01/16/2018 Status: F Source: [facility] - PT 9:21 AM [facility] REPOSITORY [facility] [place] [address] Fax REHABILITATION SERVICES INITIAL EVALUATION MR#: [id number] Acct: [id number] Name: CASSIA ZENG Jr. Rep #: [id number] : 1980 37 From: Tristan Byrne DPT Referring Dr.: Rosette Davidson DO Status: REG RCR Insurance: [facility] COMP MANAGEMENT [employer] Patient's Visit Information CASSIA ZENG Jr. is a 37 year old M referred to Physical Therapy by Rosette Davidson DO with a diagnosis of R ACL reconstruction. Date of Evaluation: 01/10/18 Physical Therapist: Tristan Byrne - Visit Plan Frequency: 2-3x /Week Duration: 6 Weeks Plan: Start with quad, HS, and glute med strengthening. Progress to eccentric strengthening as tolerated. - Subjective Findings: Pt. is here today for his initial evaluation with diagnosis of R ACL reconstruction. Pt. had surgery on 05/22/17. He was previously recieving PT for ROM and strengthening, but had to spot PT due to a foot fracture. He did recieve a new C9 for continued strengthening. 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 He denies N/T, no pain, no difficulty sleeping, but is not back to recreational activities yet. Pt. reports that he no longer has any pain, but does occassionally notice some increased weakness. Pt. is hopeful to increase strength in order to get back to all work and recreational activiteis without issues. - Objective POSTURE: Pt. has normal posture in stance. Pt. has no valgus positioning. Pt. has normal iliasc crest positioning. PALPATION: Pt. has no pain with palpation throghout R knee and calf. NEURO: Pt. has normal sensation and DTR of bilateral achilles/patellar DTR. ROM: R knee 0-0-129deg. L knee 0-0-134deg. MMT: RLE- lianet 5/5 throughout; knee- ext 5-/5, flexion 5-/5; hip- flexion 5-/5, abd 4+/5, ext 4+/5. Core strength- fair;. GAIT: Pt. has normal gait pattern without increae in symptoms. STAIRS: Pt. is able to complete with reciprocal pattern without increase in symptoms. SQUAT: Slight L lateral lean. SLS squat- difficulty with controlled eccentric motion, increased valgus positioning. - Goals Goal 1:: Pt. to be I with HEP. Goal Time Frame: 4-6 Weeks Goal 2:: Pt. to have increased RLE strength by 1/2 grade of all effected musculature. Goal Time Frame: 4-6 Weeks Goal 3:: Pt. to return to all work activities without increase in symptoms. Goal Time Frame: 4-6 Weeks Goal 4:: Pt. to perform a SLS without visible weakness. - Rehabilitation Potential Physical Therapy Diagnosis: Pt. had a R ACL reconstruction and as subsequent weakness. He would benefit from continued strengthening, both quads and HS in eccentric fashion. Pt. would benefit from further work like strengthening to progress back to full work capacity. Rehabilitation Potential: Excellent - Anticipated Interventions Patient/Client Instruction: Educate patient on: Condition, Plan of Care, Risk Factors, Benefits of Fitness Program For the Purpose of:: To facilitate caregiver knowledge, To improve self management, To prevent re-injury, To improve ability to perform tasks related to life management, To improve tolerance to ADL's Therapeutic Exercise to Include: Strength training, Power training, Endurance training, Balance training, Flexibilty training, Gait and locomotor training, Passive ROM, Active ROM For the Purpose of:: To increase ROM, To improve nutrient delivery to tissue, To increase oxygenation perfusion, To improve muscle performance and motor function, To improve gait and locomotor functions, To improve health of tissue, To decrease soft tissue restriction, To increase flexibility/ROM, To improve endurance, To improve balance Thank you for the opportunity to evaluate your patient. For Medicare and Medicare HMO plans, please review the plan of care and approve it. It will need to be FAXED BACK to us at [phone] for Medicare purposes. For Medicare only, by signing this I certify the plan of care. Please let me know if there are questions or concerns regarding this plan of care. Physician Signature: Date: <Electronically signed by Tristan Byrne DPT> 01/16/18 0921 CC: Rosette Davidson DO; Saurabh Zavala MD CLS Signed ORTHOPEDIC VISIT Observed: 10/31/2017 Status: F Source: [facility] REPORT 10:13 AM [facility] Orthopaedics AND Sports Medicine [address] [place] [address] OFFICE VISIT Date of Service: 10/31/17 MR#: [id number] Acct: [id number] Name: CASSIA ZENG Jr. Rep #: [id number] : 1980 Provider: Rosette Davidson DO Age/Sex: 37/M [place] [facility]: Signed Intake Intake Visit Reasons: RIGHT SHOULDER Is patient in pain?: No Allergies No Known Allergies Allergy (Verified 08/13/17 10:18) Medications Rivaroxaban [Xarelto] 10 mg PO DAILY #90 tab 05/22/17 [Rx Confirmed 07/02/17] Zolpidem Tartrate [Ambien (Generic)] 5 mg PO QHS PRN PRN #14 tab 05/22/17 [Rx Confirmed 07/02/17] hydroxyzine HCl 25 mg tablet 25 mg PO Q6H PRN #40 tab 05/28/17 [Rx Confirmed 07/02/17] triamcinolone acetonide 0.1 % topical cream 1 applic TOPICAL BID #30 g 05/28/17 [Rx Confirmed 07/02/17] PFSH Medical History DVT (deep venous thrombosis) (Acute) Surgical History s/p right ACL reconstruction (Acute) S/P hernia repair (Inactive) S/P right knee arthroscopy (Inactive) s/p right acl (Inactive) Family History Father Diabetes Hypertension Social History Smoking Status: Never smoker HPI RIGHT SHOULDER: Details: CASSIA ZENG is a 37 year old M here today for f/u on right knee ACL recon may 2017. He is not complaining of any pain, denies any swelling or instability. If he is on uneven surface he feels some weakness. He has no skin irritation left over. He continues to take anticoagulants. Denies numbness, tingling or other associated symptoms. He has a f/u with his pcp for reeval of the DVT. He was having calf pain after the foot injury which was when he resumed the Xeralto but he has no calf pain today. He does present in a cast shoe today. Ortho Exam Right Knee Skin/Wound: Yes CDI Contralateral Normal: Yes Swelling: No Homans Sign: No Knee ROM: Yes ROM-Extension -20 to 0, Yes ROM-Flexion 0-140 (115) Examination: No Med jt line tenderness, No Pain with extention, No Lat jt line tenderness, No Pain with flexion Quad Atrophy: Yes Stability: NML: Anterior Drawer Assessment AND Plan 1. History of anterior cruciate ligament surgery Z98.890 Plan Instructed to resume PT for leg strengthening. We will request an extension on PT since his visits were not used due to the foot injury. He can resume work with no heavy lifting from a deep squat. Follow up in 6 months or sooner if pain, swelling, numbness or associated symptoms, or concerns develop. All questions answered. Patient in agreement of plan. Coding Level of Care Code Off vis,est,level 3 Diagnoses History of anterior cruciate ligament surgery Z98.890 10/31/17 1013 <Electronically signed by Rosette Davidson DO> Date Rosette Davidson DO Cosigner Signature: Date (if applicable) CC: MRSA WOUND DNA BY Collected: 08/30/2017 Status: F Source: [facility] PCR 9:37 AM [facility] REPOSITORY Order Comment: Specimen Source? R TOE TYPE CODE TESTS RESULT OUT OF RANGE REFERENCE UNITS LAB L8200.1100 Negative Normal MRSA Negative RESULT LAB L8200.1150 Negative Normal SA RESULT NEGATIVE Performed By: #### L8200.1075 #### [facility] [address] [place], [place], [address] Observed: 08/30/2017 Status: F Source: [facility] CULTURE, WOUND 9:37 AM [facility] REPOSITORY CALL RESULTS TO [phone] Gram Stain Gram Stain No White Blood Cells No organisms seen Wound Culture No growth aerobically. Performed By: #### M100.1400 #### [facility] [address] [place], [address] ED NOTE Observed: 08/27/2017 Status: COMPLETED Source: [place] 12:19 AM [facility] REPOSITORY HNO ID: [id number] Author: Roldan (Rn) VASILE Lima Service: Emergency Medicine Author Type: Registered Nurse Type: ED Notes Filed: 08/27/2017 12:45 AM Note Text: Wound care complete. Bacitracin ointment, telfa pad, and kerlix gauze wrap applied. Post op shoe fitted. Patient using own crutches from knee surgery 3 months ago. States he is very familiar with using crutches and does not need instructions. ED NOTE Observed: 08/27/2017 Status: COMPLETED Source: [place] 12:14 AM [facility] REPOSITORY HNO ID: [id number] Author: Roldan Rincon) VASILE Lima Service: Emergency Medicine Author Type: Registered Nurse Type: ED Notes Filed: 08/27/2017 12:14 AM Note Text: Patient informed: the name of medication, why we are giving it, possible side effects, what they may expect to feel, and was offered a chance to ask questions, prior to the administration of bacitracin and keflex. FOOT 3V AP/LAT/OBL Observed: 08/26/2017 Status: F Source: [facility] 10:59 PM HEALTH SYSTEM REPOSITORY Performed at [facility] APPROVED BY: MARIBELL CARRENO MD FOOT 3V AP/LAT/OBL RIGHT INDICATION: Injury first toe COMPARISON: None TECHNIQUE: AP, oblique and lateral views right foot, 4 films. FINDINGS: No dislocation. There is a comminuted nondisplaced fracture involving the distal end of the distal phalanx first toe and associated soft tissue swelling. No other osseous fracture identified. Small p osterior and plantar calcaneal enthesophytes. IMPRESSION: Comminuted nondisplaced fracture distal end of the distal phalanx first toe with associated soft tissue swelling. No joint dislocation. ED NOTE Observed: 08/26/2017 Status: COMPLETED Source: [place] 10:55 PM [facility] REPOSITORY HNO ID: [id number] Author: Roldan Lima RN Service: Emergency Medicine Author Type: Registered Nurse Type: ED Notes Filed: 08/26/2017 10:55 PM Note Text: Patient informed: the name of medication, why we are giving it, possible side effects, what they may expect to feel, and was offered a chance to ask questions, prior to the administration of adacel. ED NOTE Observed: 08/26/2017 Status: COMPLETED Source: [place] 10:54 PM [facility] REPOSITORY HNO ID: [id number] Author: Roldan Rincon) VASILE Lima Service: Emergency Medicine Author Type: Registered Nurse Type: ED Notes Filed: 08/26/2017 10:56 PM Note Text: Patient returned to the Emergency Department. ED PROV NOTE Observed: 08/26/2017 Status: COMPLETED Source: [place] 10:42 PM [facility] REPOSITORY HNO ID: [id number] Author: Roldan Ellis MD Service: Emergency Medicine Author Type: Physician Type: ED Provider Notes Filed: 08/27/2017 12:10 AM Note Text: ED Provider Note Patient Name: Cassia Zeng SERVICE DATE: 08/26/17 History Patient presents with: Toe Injury Cassia Zeng is a 37 year old male with history of no chronic medical problems who presents with Toe Injury. Patient took nothing for this prior to arrival. - Symptoms began 35 minutes prior to arrival. - Severity: moderate - Timing: constant - Quality: sore - Toe Injury is exacerbated by palpation. - Toe Injury is not exacerbated by elevation. - Symptoms are associated with bleeding around the right great toenail. - Symptoms are not associated with any other injury. - Improved by rest. - Not improved by walking While at training exercises for work accidentally dropped a fire extinguisher onto his right great toe. PAST MEDICAL HISTORY Diagnosis Date - DVT (deep venous thrombosis) (HCC) - NEGATIVE MEDICAL HISTORY PAST SURGICAL HISTORY Procedure Laterality Date - PAST SURGICAL HISTORY OF acl right knee surg - PAST SURGICAL HISTORY OF eye right - REPAIR ING HERNIA,5+Y/O,REDUCIBL Hernia repair, inguinal right FAMILY HISTORY Problem Relation Age of Onset - Hypertension Father - Lipids Father - Heart Maternal Grandfather - None Mother Social History Social History Main Topics - Smoking status: Never Smoker - Smokeless tobacco: Current User - Alcohol use Yes Comment: 5 drinks a week - Drug use: No - Sexual activity: No ALLERGIES Allergen Reactions - Steroids [Betametha* Review of Systems Constitutional: Negative for chills and fever. Gastrointestinal: Negative for nausea and vomiting. Skin: Positive for wound. Negative for color change, pallor and rash. Allergic/Immunologic: Negative for environmental allergies, food allergies and immunocompromised state. Neurological: Negative for syncope and numbness. Psychiatric/Behavioral: Negative for confusion. The patient is not nervous/anxious. Physical Exam BP 147/97 Pulse 86 Temp (Src) 98 (Temporal Artery) Resp 16 Ht 5' 10 (1.78m) Wt 270 lb (122.5kg) SpO2 97% BMI 38.74 kg/(m2). Physical Exam Constitutional: He is oriented to person, place, and time. He appears well-developed and well-nourished. No distress. obese HENT: Head: Normocephalic and atraumatic. Right Ear: External ear normal. Left Ear: External ear normal. Mouth/Throat: Oropharynx is clear and moist. Eyes: EOM are normal. Right eye exhibits no discharge. Left eye exhibits no discharge. No scleral icterus. Pulmonary/Chest: Effort normal. No respiratory distress. Musculoskeletal: He exhibits edema, tenderness and deformity. right great toenail is partially avulsed proximally with losing some diffuse edema is noted to the digit skin is intact and good circulation Neurological: He is alert and oriented to person, place, and time. No sensory deficit. He exhibits normal muscle tone. Skin: Skin is warm and dry. Capillary refill takes less than 2 seconds. He is not diaphoretic. No erythema. No pallor. Psychiatric: He has a normal mood and affect. His behavior is normal. Judgment and thought content normal. Nursing note and vitals reviewed. Diagnostic Testing ED Labs Ordered and Reviewed - No data to display LAC REPAIR Date/Time: 08/27/2017 12:06 AM Performed by: ROLDAN ELLIS Authorized by: ROLDAN ELLIS Consent: Consent obtained: Verbal Consent given by: Patient Risks discussed: Infection, pain and need for additional repair Alternatives discussed: No treatment Anesthesia (see MAR for exact dosages): Anesthesia method: Nerve block Block needle gauge: 25 G Block anesthetic: Bupivacaine 0.25% w/o epi Block technique: Digital Block injection procedure: Anatomic landmarks identified, introduced needle, incremental injection, anatomic landmarks palpated and negative aspiration for blood Block outcome: Anesthesia achieved Laceration details: Location: Toe Toe location: R big toe Length (cm): 2 Depth (mm): 5 Repair type: Repair type: Intermediate Pre-procedure details: Preparation: Patient was prepped and draped in usual sterile fashion and imaging obtained to evaluate for foreign bodies Exploration: Hemostasis achieved with: Direct pressure Wound exploration: wound explored through full range of motion Wound extent: underlying fracture Wound extent: no foreign bodies/material noted Contaminated: no Treatment: Area cleansed with: Shur-Clens and saline Amount of cleaning: Standard Irrigation solution: Sterile saline Irrigation volume: 250 mL Irrigation method: Syringe Visualized foreign bodies/material removed: no Subcutaneous repair: Suture size: 5-0 (2 cm laceration of the nail matrix was repaired with 5-0 fast absorbing gut) Suture material: Fast-absorbing gut Suture technique: Simple interrupted Number of sutures: 3 Skin repair: Repair method: Sutures (nail was refastened with 2 4-0 nylon sutures) Suture size: 4-0 Suture material: Nylon Suture technique: Simple interrupted Number of sutures: 2 Approximation: Approximation: Close Post-procedure details: Dressing: Antibiotic ointment, non-adherent dressing and splint for protection Patient tolerance of procedure: Tolerated well, no immediate complications Comments: antibiotic given underlying distal tuft fracture of right great toe possible open fracture Medical Decision Making MDM I we'll update his tetanus vaccine is not sure when he last had one digital block of the toe may need to take this nail off once his explorer little bit more going to get an x-ray to evaluate for fracture. ED Course / Clinical Impression wound repaired patient given prophylactic antibiotic he is going to follow up with his orthopedic surgeon for recheck nonweightbearing and crutches until recheck. Plan The patient was DISCHARGED: Counseled patient and father regarding radiology results AND suspected diagnosis AND need for follow- up. Discharged home with verbal and written instructions. They were instructed to return as needed for persistent or worsening symptoms or any new concerns. Condition at time of disposition: improved and stable SIGNATURE: MD Roldan Dumont MD 08/27/17 0010 ORTHOPEDIC VISIT Observed: 08/22/2017 Status: F Source: [facility] REPORT 9:08 AM [facility] Orthopaedics AND Sports Medicine [address] [place] [address] OFFICE VISIT Date of Service: 08/13/17 MR#: [id number] Acct: [id number] Name: CASSIA ZENG Jr. Rep #: [id number] : 1980 Provider: Rosette Davidson DO Age/Sex: 37/M Location[place] [facility] [place] Status: Signed Intake Intake Visit Reasons: RIGHT KNEE Is patient in pain?: No Allergies No Known Allergies Allergy (Verified 08/13/17 10:18) Medications Rivaroxaban [Xarelto] 10 mg PO DAILY #90 tab 05/22/17 [Rx Confirmed 07/02/17] Zolpidem Tartrate [Ambien (Generic)] 5 mg PO QHS PRN PRN #14 tab 05/22/17 [Rx Confirmed 07/02/17] hydroxyzine HCl 25 mg tablet 25 mg PO Q6H PRN #40 tab 05/28/17 [Rx Confirmed 07/02/17] triamcinolone acetonide 0.1 % topical cream 1 applic TOPICAL BID #30 g 05/28/17 [Rx Confirmed 07/02/17] PFSH Medical History DVT (deep venous thrombosis) (Acute) Surgical History s/p right ACL reconstruction (Acute) S/P hernia repair (Inactive) S/P right knee arthroscopy (Inactive) s/p right acl (Inactive) Family History Father Diabetes Hypertension Social History Smoking Status: Never smoker HPI RIGHT KNEE: Details: CASSIA ZENG is a 37 year old M here today for s\p right ACL reconstruction, dos 05/22/17. Patient notes that he is doing well and not having any pain or issues. He denies any instability. Patient is currently in formal physical therapy which is helpful. Patient denies any knee bracing. Denies numbness, tingling or other associated symptoms. Patients incision is fully healed. No calf pain currently, no sob, back to most activities within set limits. DId have a spell of calf pain that was seen in ED with ultrasound of calf which was negative for blood clots and pt states symptoms have gone. ROS Const Reports system reviewed and no additional complaints, except as docu Eyes Reports system reviewed and no additional complaints, except as docu ENT Reports system reviewed and no additional complaints, except as docu Card Reports system reviewed and no additional complaints, except as docu Resp Reports system reviewed and no additional complaints, except as docu GI Reports system reviewed and no additional complaints, except as docu Reports system reviewed and no additional complaints, except as docu Skin/Breast Reports system reviewed and no additional complaints, except as docu Neuro Yes system reviewed and no additional complaints, except as docu Psych Reports system reviewed and no additional complaints, except as docu Endo Reports system reviewed and no additional complaints, except as docu Ortho Exam Right Knee Date of Surgery: 05/22/17 Skin/Wound: Yes CDI, Yes healed Contralateral Normal: Yes Swelling: No Homans Sign: No Knee ROM: Yes ROM-Extension -20 to 0, Yes ROM-Flexion 0-140 (120) Quad Atrophy: Yes Stability: NML: Anterior Drawer Assessment AND Plan 1. Orthopedic aftercare Z47.89 Plan neg doppler and patient back to most normal activities without pain or difficulty. patient has done 3 months of anticoag and since is now back to adls may stop - also d/t neg ultrasound-. instructed patient that if has any calf pain or difficulty to call us and we can evaluate- or if after hours, to go to ER. patient aware and in agreement of plan. Explained that the stiffness is normal, the calf pain has resolved and his last doppler was negative 6wks ago, it is not abnormal to have phlebitis of the right calf. In the future with long car rides and travel he should follow the dvt guidelines. He has good strength today, the swelling is improved and the bump that was irritating earlier has resolved. We will submit for more PT, knee brace and his work restrictions are no cutting or pivoting or jumping. He will take a longer time to fully return due to the number of surgeries. Follow up in 3 months or sooner if pain, swelling, numbness or associated symptoms, or concerns develop. All questions answered. Patient in agreement of plan. Coding Level of Care Code Global Post Op Diagnoses Orthopedic aftercare Z47.89 08/22/17 0908 <Electronically signed by Rosette Davidson DO> Date Rosette Davidson DO Cosigner Signature: Date (if applicable) CC: ORTHOPEDIC VISIT Observed: 07/02/2017 Status: F Source: COREEN REPORT 10:14 AM [facility] REPOSITORY [facility] Orthopaedics AND Sports Medicine [address] [place] [id number] OFFICE VISIT Date of Service: 07/02/17 MR#: [id number] Acct: [id number] Name: CASSIA ZENG Jr. Rep #: [id number] : 1980 Provider: Rosette Davidson DO Age/Sex: 37/M Location: [facility] [place] Status: Signed Intake Intake Visit Reasons: RIGHT KNEE Is patient in pain?: Yes Pain scale (1-10): 1 Allergies No Known Allergies Allergy (Verified 06/19/17 14:10) Medications Rivaroxaban [Xarelto] 10 mg PO DAILY #90 tab 05/22/17 [Rx Confirmed 07/02/17] Zolpidem Tartrate [Ambien (Generic)] 5 mg PO QHS PRN PRN #14 tab 05/22/17 [Rx Confirmed 07/02/17] hydroxyzine HCl 25 mg tablet 25 mg PO Q6H PRN #40 tab 05/28/17 [Rx Confirmed 07/02/17] triamcinolone acetonide 0.1 % topical cream 1 applic TOPICAL BID #30 g 05/28/17 [Rx Confirmed 07/02/17] PFSH Medical History DVT (deep venous thrombosis) (Acute) Surgical History s/p right ACL reconstruction (Acute) S/P hernia repair (Inactive) S/P right knee arthroscopy (Inactive) s/p right acl (Inactive) Family History Father Diabetes Hypertension Social History Smoking Status: Never smoker HPI RIGHT KNEE: Details: CASSIA ZENG is a 37 year old M here today for f/u 05/21/17 right ACL recon. He continues to struggle with quad strengthening but has only been to one session of PT. He is ambulating with the brace in full extension, some swelling and continues to have the bump proximal to the incision. His skin irritation is healing well and there is only evidence near the ankle. He only complains of anterior knee pain with full extension. He does have incisional numbness. No calf pain today. Patient had difficulty getting a refill of his anti coagulant but has plenty left at this point. Ortho Exam Right Knee Skin/Wound: Yes healed Contralateral Normal: Yes Swelling: Yes Homans Sign: No Knee ROM: Yes ROM-Extension -20 to 0, Yes ROM-Flexion 0-140 (110) Examination: Yes Pain with extention Quad Atrophy: Yes Assessment AND Plan 1. Orthopedic aftercare Z47.89 Plan Reviewed his progression, he can wean out of the trom brace and use it if needed unlocked. He can try an otc brace if needed for comfort. The bump near pes may likely remain for a while, its soft and non painful. Remain on same restrictions for another 6wks. He can d/c the anticoagulants in 6wks as long as he remains active. Follow up in 6wks or sooner if pain, swelling, numbness or associated symptoms, or concerns develop. All questions answered. Patient in agreement of plan. Coding Level of Care Code Global Post Op Diagnoses Orthopedic aftercare Z47.89 07/02/17 1014 <Electronically signed by Rosette Davidson DO> Date Rosette Davidson DO Cosigner Signature: Date (if applicable) CC: INITAL EVALUATION (1) Observed: 06/30/2017 Status: F Source: COREEN Cid PT 12:33 PM [facility] REPOSITORY [facility] [address] [place] [address]. [address] [place] [address] Fax REHABILITATION SERVICES INITIAL EVALUATION MR#: [id number] Acct: [id number] Name: CASSIA ZENG Carlos Alberto Ochoa Rep #: [id number] : 1980 37 From: Hudson Mcclain PT, Cert. MDT, OCS Referring Dr.: Rosette Davidson DO Status: REG RCR Insurance: [facility] COMP MANAGEMENT SELF PAY INSURANCE Patient's Visit Information CASSIA Carlos Alberto ZENG Jr. is a 37 year old M referred to Physical Therapy by Rosette Davidson DO with a diagnosis of SPRAIN ANTERIOR CRUCIATE LIGAMNET RIGHT KNEE. Date of Evaluation: 06/28/17 Physical Therapist: Hudson Mcclain PT, - Visit Plan Frequency: 3x /Week Duration: 6 Weeks Plan: * SEE PROTOCAL GUIDELINES FOR ACL CONSTRUCTION*. S/P ACL RECONSTRUCTION WITH ALLOGRAFT May --6 WEEKS POST OP JULY 03. --MAY USE FES TO QUAD-- - Subjective Subjective: This 37 y/o male presents to physical therapy with penelope anrterior cruciate ligamnent right knee. Patient underwent s/p ACL reconstruction allograft and menisectomy medial/lateral May done by Dr Skinner at [facility] . Patient d/c to home with NWB with crutches 2weeks,June 04 WBAT with crutches knee brace locked. Patient weaned self from crutches .Patient brace locked when walking or sleeping .Denies parathesia/tingling.Patient had venous doppler test to r/o DVT due pain iin calf which eas negative. 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 Seen DR Davidson seen prevous MRI showed ACL tear. Patient had prior PT before surgery for ROM/strength. Patient impairments affects quality of life and RTW . Patient is on light duty.Patient stairs one steps at a time. 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 SOCIAL: single. HOBBIES: hunting /golfing - Pain Right Knee Pain Intensity (Out of 10): 0 Pain Intensity Range: 10 - Objective POSTURE: WFL. GAIT: ambulates with KNEE brace locked slight decrease stance. NEURO: inact. EDEMA: 43 cm joint line. QUAD ATROPHIED: 6 above 50.3 cm. AROM:3-110 SUPINE KNEE FLEXION. QUAD SET: poor. PROPRIOCEPTION : poor. MMT:quads 3+/5/hams 4-/5,hip flexion/abduction 4-/5 ,ankle 4/5. FLEXABLITY : HAMS MIN TIGHT - Goals Goal 1:: Independant with HEP per protocal. Goal Time Frame: 8-12 Weeks Goal 2:: Patient ambulate with normal gutierrez swing phase receproca pattern Goal Time Frame: 12-16 Weeks Goal 3:: Patient to improve knee right symmtrical left to asend/desend 12 steps alternating. Goal Time Frame: 12-16 Weeks Goal 4:: Patient increase strength of quads/hams/hip 5/5 to improve function with RTW. Goal Time Frame: 12-16 Weeks Goal 5:: Patient to improve proprioception and motor control to normal Goal Time Frame: 12-16 Weeks Goal 6:: Patient to return to job demands and h[employer] chores with no limitations. Goal Time Frame: 12-16 Weeks - Rehabilitation Potential Physical Therapy Diagnosis: Patient underwent s/p ACL reconstruction May . Intailly,patient was NWB RLE knee immoblizer with knee brace locked progressed with WBAT with no crutches knee brace locked. Patient has current impairments with decrease ROM ,strength ,prioprioception ,gait. and RTW thus benifit from skilled PT. Rehabilitation Potential: Good - Anticipated Interventions Patient/Client Instruction: Educate patient on: Condition, Plan of Care, Risk Factors For the Purpose of:: To decrease pain, To increase ROM, To improve muscle performance and motor function, To improve ability to perform ADL's, To increase tolerance to activity/condition/position, To improve performance and independence with ADL's, To improve ability of physical actions for home/community/work/leisure, To improve health of tissue, To decrease soft tissue restriction, To increase flexibility/ROM, To improve balance, To improve ability to perform tasks related to life management Therapeutic Exercise to Include: Strength training, Power training, Endurance training, Balance training, Coordination, Flexibilty training, Gait and locomotor training, Passive ROM, Active ROM Comment: SEE PROTOCAL AND GUIDELINE For the Purpose of:: To decrease pain, To increase ROM, To improve muscle performance and motor function, To improve ability to perform ADL's, To increase tolerance to activity/condition/position, To improve ability of physical actions for home/community/work/leisure, To improve gait and locomotor functions, To improve health of tissue, To decrease soft tissue restriction, To increase flexibility/ROM, To improve endurance, To improve balance, To improve ability to perform tasks related to life management Functional electric stimulation: Yes TENS: Yes IF ES: Yes Cryotherapy (ice pack, ice massage): Yes Thermo therapy (hot pack): Yes For the Purpose of:: To decrease pain, To increase ROM, To improve muscle performance and motor function, To increase tolerance to activity/condition/position, To improve ability of physical actions for home/community/work/leisure, To improve health of tissue, To decrease soft tissue restriction, To increase flexibility/ROM, To improve endurance, To improve balance, To improve ability to perform tasks related to life management Thank you for the opportunity to evaluate your patient. For Medicare and Medicare HMO plans, please review the plan of care and approve it. It will need to be FAXED BACK to us at [phone] for Medicare purposes. Please let me know if there are questions or concerns regarding this plan of care. Physician Signature: Date: <Electronically signed by Hudson Mcclain PT, Cert. T, OCS> 06/30/17 1233 CC: Rosette Davidson DO; Saurabh Zavala MD MITCH Signed For Medicare only, by signing this I certify the plan of care. Physicians Signature Date EMERGENCY DEPARTMENT Observed: 06/19/2017 Status: F Source: CIRCLE SUMMARY 5:44 PM [facility] REPOSITORY [facility] Medical Records Department [address] [place] [address] Emergency Department Summary 06/19/17 1558 MR#: [id number] Acct: [id number] Name: CASSIA ZENG . Rep #: [id number] : 1980 37 From: Jose Armando Zhao MD PCP: Saurabh Zavala MD Status: DEP ER - ER Visit Summary Date of Service: 06/19/17 Chief Complaint: Right calf pain History of Present Illness: The patient is a [address] Saurabh Oconnell and Dr. Davidson. He had a right ACL repair by Dr. Davidson on May 20. Reports that he was doing well until today when he had an episode of pain in his right calf while walking. He describes as a dull pain is 510 at worst and is pain-free currently. States this is similar to when he had a DVT in the past. However, the patient is on 10 mg of Xarelto a day and began this May 21. Physical Examination: Vitals: Stable. Afebrile. General: Well-nourished and well-developed. Head: Normocephalic atraumatic. Neck: Supple, no lymphadenopathy. No JVD. Nontender. Cardiovascular: Regular rate and rhythm. No murmurs. Respiratory: No respiratory distress. Clear to auscultation bilaterally. Abdominal: Soft, nontender, nondistended, normal bowel sounds. No guarding, rebound, or peritoneal signs. Back: Nontender. Extremities: Nontender, no edema. Incisions on the right knee are clean, dry, and intact. There is no erythema or warmth. No tenderness to palpation. Skin: Normal color, no rash. Neurologic: Alert and oriented 3. Cranial nerves II through XII are intact. Normal strength and sensation. Psych: Normal affect. Test Results: Right lower extremity Doppler was negative. Emergency Department Course and Treatment: Patient was reassured. He refused pain medications. Treatment Plan: Patient will be discharged instructions to follow Dr. Davidson as previously scheduled. Disposition: To home in improved and stable condition. Impression: 1. 1 month status post right ACL repair. 2. Right calf pain. This note was generated with PowerFile dictation software. It may contain incorrect words, spelling, and punctuation that were not noted in review of the chart prior to signing ED Disposition - Plan for ED Patient: Disposition: Home or Assisted Living Chief Complaint: Lower Extremity Injury Instructions: ED Muscle Aching Referrals: Rosette Davidson DO [STAFF PHYSICIAN] - Keep Jason appointment What to do if you have Problems For any increased pain, shortness of breath, bleeding, nausea or vomiting, chest pain, or any unexpected problems, contact your Primary Care Provider. Call [facility] ([phone]) or report to the closest Emergency Room. Call 911 if necessary. 06/19/17 4670 <Electronically signed by Jose Armando Zhao MD> Date Jose Armando Zhao MD Cosigner Signature (If Indicated): Date CC: Saurabh Zavala MD VENOUS DUPLEX LOWER Observed: 06/19/2017 Status: F Source: CIRCLE EXTREMITY 4:06 PM [facility] REPOSITORY [facility] Cardiovascular Services [address] [place] [address] Venous Duplex US, Unilateral 06/19/17 1528 MR#: [id number] Acct: [id number] Name: CASSIA ZENG Jr. Rep #: [id number] : 1980 37 From: Rafiq Pink MD Attending Dr: Status: REG ER Ordering Dr: Jose Armando Zhao MD Date: 06/19/17 Location: ED Sex: M C Admitted: Reason For Study: RLE Pain RIGHT LEFT GSV is normal. CFV is compressible, spontaneous, phasic, CFV is compressible, spontaneous, phasic, competent, and demonstrates normal competent and demonstrates normal augmentation. augmentation. FV is compressible, spontaneous, phasic, competent and demonstrates normal augmentation. POP V is compressible, spontaneous, phasic, competent and demonstrates normal augmentation. T/P Trunk is compressible. PTV is compressible. RT PerV is compressible. Procedure Exam performed portable in ED. A preliminary report was called and/or faxed to Dr. Zhao. Interpretation Summary Deep veins of the right lower extremity are patent and compressible segmentally. There is no evidence of right lower extremity deep vein thrombosis. Valvular competence appears intact within the proximal deep venous system on the right . The right greater saphenous vein appears patent and compressible segmentally. Ordering Physician: Jose Armando Zhao Referring Physician: Saurabh Zavala Performed By: Maricruz Patel, ARIC, RVT 06/19/17 1606 Date Rafiq Pink MD CC: Saurabh Zavala MD; Jose Armando Zhao MD Date Dictated: 06/19/17 1528 Date Transcribed: 06/19/17 1606 Payroll Consultant: Signed OPERATIVE REPORT Observed: 06/05/2017 Status: F Source: COREEN 11:01 AM [facility] REPOSITORY [facility] Medical Records Department [address] [place] [address] Operative Report 05/22/17 0733 MR#: [id number] Acct: [id number] Name: CASSIA ZENG Jr. Rep #: [id number] : 1980 36 From: Rosette Davidson DO PCP: Saurabh Zavala MD Status: DEP [facility] Y Location: [facility] Report of Operation Date of Procedure: 05/22/17 Pre-Operative Diagnosis: right knee acl tear, medial and lateral meniscus tears, osteoarthritis/synovitis Post-Operative Diagnosis: same Surgery/Procedure Performed:: sark, acl reconstruction with allograft, partial medial and lateral meniscectomies, synovectomy Type of Anesthesia:: Block,Regional, General Anesthesiologist: Salomón Ng Estimated Blood Loss (mL): minimal Fluids Replaced: 1500ml lr Description of Procedure: Preop note Patient seen and examined in preoperative holding area. Right leg was marked. Gas risks benefits and alternatives surgery. Patient is in dealing with this for quite some time had a work injury ACL tear and he was bone grafted and now he comes back for his revision ACL surgery. On MRI of questionable new versus old medial and/or lateral meniscus tears. We did get a CAT scan that showed that he had good bone growth and fellow of his tunnels. Risks including but not limited to blood loss, blood clot, infection, neurovascular injury, failure procedure, loss of life and loss of limb. 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 We will proceed with right knee arthroscopy ACL reconstruction with allograft repair is indicated. We also did discuss the wrist with allograft hepatitis C HIV etc. patient is aware like proceed as aforementioned. Operative note Patient seen and examined holding area. Right knee was marked. Patient is brought to the operating room placed supine on the operating room table. Signing, anesthesia, antibiotics were administered. All bony prominences well-padded SCDs placed on his contralateral limb. The right leg was prepped and draped in usual sterile fashion with a tourniquet around his upper thigh. We used his previous incision for our diagnostic arthroscopy. The leg was elevated exsanguinated and tourniquet was raised her pressure of 250 torr. Timeout was performed. We then used an 11 blade to create her anterior lateral portal we began our diagnostic arthroscopy. He has some fibrillated changes in the inferior pole of his patella the rest of his patellofemoral joint was intact. We then moved to the medial joint line created our anterior medial portal under direct visualization. We are then able to insert the probe and noted that he had good residual remnant meniscus however is a little bit of fraying so we did debride that with a combination of a shaver and basket. We reinserted the probe to ensure that we had good relief remaining meniscus which we did have. We then moved to the notch. The ACL was obviously torn there is some hypertrophic scarring the PCL is present within the notch. We then use a combination of a shaver and a burner and a bur to perform a notchplasty. We then moved to the lateral joint line. There is a slight lateral disc tear at the mid body. This was gently resected back with a basket and shaver as well to stable rim. We then reinserted a probe to ensure that we had stability less than which we did have. Patient had extensive synovitis and scarring as this was his third surgery for this injury. This did quite take a quite a bit of time to resect back the scar tissue. The back on the back table the ACL was repaired in standard technique. We used a nonirradiated allograft that was measured to be 8.5 in the back table. We then prepared our femoral tunnel in standard fashion using a flip cutter and making a small incision on the lateral femoral distal femur in standard technique the ring back about 25 mm we then drilled our tibial tunnel. We irrigated with copious amounts of sterile saline ensuring that we had all bony debris removed we visualized both the femoral and tibial tunnels ensure we had good bony cortex and then we had a great on back wall and the femoral side as well. We then placed our graft through into and flipped the button on the lateral femoral cortex we also took fluoroscopy to ensure that we had flipped it on that was in position on the lateral femoral cortex which it was. We then cycled the graft 25 times and then pulling distally with the graft and with a posterior drawer we placed our 9 x 28 by composite bio composite screw. Please note that prior to this we did extend the knee noted we had no impingement anteriorly and full extension. We then went back into the need to ensure that we had good stability of our repair and that there is no encroachment of the joint with a screw which we did not have. Again the knee was irrigated with copious amounts of sterile saline. The remnant residual ACL graft was truncated at the distal end and the incision closed with deep 2-0 Vicryl interrupted 4-0 running Monocryl and the portals were closed with interrupted 4-0 nylon suture sterile dressings and a brace locked in extension was placed. Patient may move brace 0-90 . Patient received a postoperative regional block in the OR. Tourniquet was deflated for total working time of 80 minutes. Patient tolerated procedure well there are no comp occasions. Patient transferred to the recovery room in stable condition Postoperative note Weightbearing right leg for 2 weeks May move leg 0-90 as tolerated next Call with increased pain numbness tingling or further issues or arise Follow-up in 2 weeks Start Xarelto given Ambien and Tylenol 3 as well Discussed as he is a risk for another blood clot that he should really encouraged ankle pumps and moving as much as possible and to call if he has any increased calf pain or other concerns. This note was generated with PowerFile dictation software. It may contain incorrect words, spelling, and punctuation that were not noted in checking the note before signing. Grafts/Implants Used: arthrex tight rope, 9x28 tibial biocomposite screw 06/05/17 1101 <Electronically signed by Rosette Davidson DO> Date Rosette Davidson DO CC: Rosette Davidson DO; Saurbah Zavala MD Signed ORTHOPEDIC VISIT Observed: 06/04/2017 Status: F Source: COREEN REPORT 2:37 PM [facility] Orthopaedics AND Sports Medicine [address] [place] [address] OFFICE VISIT Date of Service: 06/04/17 MR#: [id number] Acct: [id number] Name: CASSIA ZENG Jr. Rep #: [id number] : 1980 Provider: Rosette Davidson DO Age/Sex: 36/M Location: [facility].SMO Status: Signed Intake Intake Visit Reasons: RIGHT KNEE Allergies No Known Allergies Allergy (Verified 05/15/17 10:02) Medications Acetaminophen/Codeine #3 [Tylenol #3 Tablet] 1 - 2 tab PO Q6H PRN PRN #30 tab 05/22/17 [Rx] Rivaroxaban [Xarelto] 10 mg PO DAILY #90 tab 05/22/17 [Rx] Zolpidem Tartrate [Ambien (Generic)] 5 mg PO QHS PRN PRN #14 tab 05/22/17 [Rx] hydroxyzine HCl 25 mg tablet 25 mg PO Q6H PRN #40 tab 05/28/17 [Rx Confirmed 05/28/17] triamcinolone acetonide 0.1 % topical cream 1 applic TOPICAL BID #30 g 05/28/17 [Rx Confirmed 05/28/17] PFSH Medical History DVT (deep venous thrombosis) (Acute) Surgical History s/p right ACL reconstruction (Acute) S/P hernia repair (Inactive) S/P right knee arthroscopy (Inactive) s/p right acl (Inactive) Family History Father Diabetes Hypertension Social History Smoking Status: Former smoker HPI RIGHT KNEE: Details: CASSIA ZENG is a 36 year old M here today s/p right knee ACL reconstruction, medial and lateral meniscectomy, dos 05/22/17. Patient notes that his rash is improving although it is still there. He has developed blisters under his steri strips. Patient has swelling over his medial incision. Patient denies any redness or drainage from incisions. He has been non weightbearing at all times and has been using his brace at all times. He had calf pain but he went to the ED on Saturday, where he had an ultrasound which was negative. Denies calf pain today. States that pain has dissipated. Patient states that the itching and the bumps have also decreased. Pain is controlled no fevers chills chest pain or other constitutional symptoms today. ROS Const Reports system reviewed and no additional complaints, except as docu Eyes Reports system reviewed and no additional complaints, except as docu ENT Reports system reviewed and no additional complaints, except as docu Card Reports system reviewed and no additional complaints, except as docu Resp Reports system reviewed and no additional complaints, except as docu GI Reports system reviewed and no additional complaints, except as docu Reports system reviewed and no additional complaints, except as docu Musc Reports joint pain Skin/Breast Reports system reviewed and no additional complaints, except as docu Neuro Yes system reviewed and no additional complaints, except as docu Psych Reports system reviewed and no additional complaints, except as docu Endo Reports system reviewed and no additional complaints, except as docu Ortho Exam Right Knee Date of Surgery: 05/22/17 Skin/Wound: Yes healing, Yes suture/pablo removed Contralateral Normal: Yes Swelling: Yes Homans Sign: No 1+: Effusion Knee ROM: Yes ROM-Extension -20 to 0, Yes ROM-Flexion 0-140 (80) Examination: Yes Pain with flexion Quad Atrophy: Yes Stability: NML: Anterior Drawer Assessment AND Plan 1. Orthopedic aftercare Z47.89 Plan Discussed the patient has atypical findings with his history of blood clots in the past. He is still on his Xarelto. However because of this we will be a little bit more reticent about sending him to the emergency room to get a repeat ultrasound of his calf pain returns. Patient aware and agreement of plan. At this point will initiate Workmen's Comp. for physical therapy and proceed appropriately. Patient is doing home exercises. Again if increasing calf pain shortness of breath or other issues patient is to go emergently to the emergency room. He has improving rash but the swelling around the incision is not improving. With calf pain and his hx, even with neg doppler last week, if his pain returns instructed to return to the ED. He needs to remain in the brace for another month locked in extension with ambulation and can remove for rom at home but he can begin fwb as tolerated and should work on HEP. Will submit for PT. Follow up in a month or sooner if pain, swelling, numbness or associated symptoms, or concerns develop. All questions answered. Patient in agreement of plan. Coding Level of Care Code Global Post Op Diagnoses Orthopedic aftercare Z47.89 06/04/17 7980 <Electronically signed by Rosette Davidson DO> Date Rosette Moffett Signature: Date (if applicable) CC: VENOUS DUPLEX LOWER Observed: 06/01/2017 Status: F Source: COREEN EXTREMITY 4:56 PM [facility] REPOSITORY [facility] [address] [place] [address] Venous Duplex US, Unilateral 05/31/17 1536 MR#: [id number] Acct: [id number] Name: CASSIA ZENG JrMargarita Rep #: [id number] : 1980 36 From: Rafiq Pink MD Attending Dr: Status: DEP ER Ordering Dr: Temo Ram MD Date: 05/31/17 Location: ED Sex: M C Admitted: Reason For Study: LEG PAIN RIGHT GSV is normal. CFV is compressible, spontaneous, phasic, competent and demonstrates normal augmentation. FV is compressible, spontaneous, phasic, competent and demonstrates normal augmentation. POP V is compressible, spontaneous, phasic, competent and demonstrates normal augmentation. T/P Trunk is compressible. PTV is compressible. RT PerV is compressible. Procedure Exam performed portable in ED. A preliminary report was called and/or faxed to Dr. Ram. Interpretation Summary Deep veins of the right lower extremity are patent and compressible segmentally. There is no evidence of right lower extremity deep vein thrombosis. Valvular competence appears intact within the proximal deep venous system on the right . The right greater saphenous vein appears patent and compressible segmentally. Ordering Physician: Temo Ram Referring Physician: Rosette Davidson Performed By: Hortencia Avelar RVT 06/01/176 Date Rafiq Pink MD CC: Temo Ram MD; Saurabh Zavala MD Date Dictated: 05/31/17 1536 Date Transcribed: 06/01/171655 Payroll Consultant: Signed EMERGENCY DEPARTMENT Observed: 05/31/2017 Status: F Source: CIRCLE SUMMARY 4:49 PM [facility] REPOSITORY [facility] Medical Records Department [address] [place] [address] Emergency Department Summary 05/31/17 1529 MR#: [id number] Acct: [id number] Name: CASSIA ZENG Carlos Alberto Ochoa Rep #: [id number] : 1980 36 From: Temo Ram MD PCP: Saurabh Zavala MD Status: DEP ER - ER Visit Summary Date of Service: 05/31/17 Chief Complaint: Possible DVT History of Present Illness: The patient is a 36 M who had ACL surgery on May [address] Davidson. The surgical site has been doing well. No pain in his knee. He does report pain in his right calf. He has a history of DVT. He is currently on Xarelto. No shortness of breath or chest pain. No cough or hemoptysis. Physical Examination: Vital signs unremarkable for heart rate of 122. Afebrile. Alert and oriented and in no acute distress. Breathing comfortably. Surgical site appears normal. Skin appears normal. Good range of motion. Neurovascular intact distally. He does have some tenderness into his right calf. No significant edema noted. Test Results: Ultrasound pending. Emergency Department Course and Treatment: Patient declined pain medicine while awaiting results. I am not concerned for infection, fracture, or problems directly related to the surgery. This could be myofascial pain, but we will check the ultrasound. Ultrasound was negative. I believe the pain is in his muscle or it may be from his brace. Continue his meds and follow-up with his doctor as planned. Treatment Plan: As above Disposition: Discharged Impression: 1. Right calf pain This note was generated with PowerFile dictation software. It may contain incorrect words, spelling, and punctuation that were not noted in review of the chart prior to signing ED Disposition - Plan for ED Patient: Chief Complaint: Lower Extremity Injury Referrals: Saurabh Zavala MD [Primary Care Provider] - What to do if you have Problems For any increased pain, shortness of breath, bleeding, nausea or vomiting, chest pain, or any unexpected problems, contact your Primary Care Provider. Call [facility] ([phone]) or report to the closest Emergency Room. Call 911 if necessary. 05/31/17 1649 <Electronically signed by Temo Ram MD> Date Temo Ram MD Cosigner Signature (If Indicated): Date CC: Saurabh Zavala MD DISCHARGE INSTRUCTION Observed: 05/31/2017 Status: F Source: CIRCLE 4:49 PM [facility] REPOSITORY [facility] Medical Records Department [address] [place] [address] Discharge Instruction 05/31/17 1551 MR#: [id number] Acct: [id number] Name: AZUCENACASSIA Jr. Rep #: [id number] : 1980 36 From: Temo Ram MD PCP: Saurabh Zavala MD Status: [facility] ER ED Disposition - Plan for ED Patient: Chief Complaint: Lower Extremity Injury Instructions: ED DVT Referrals: Saurabh Zavala MD [Primary Care Provider] - Rosette Davidson DO [STAFF PHYSICIAN] - What to do if you have Problems For any increased pain, shortness of breath, bleeding, nausea or vomiting, chest pain, or any unexpected problems, contact your Primary Care Provider. Call [facility] ([phone]) or report to the closest Emergency Room. Call 911 if necessary. 05/31/17 9307 <Electronically signed by Temo Ram MD> Date Temo Ram MD Cosigner Signature (If Indicated): Date CC: Saurabh Zavala MD ORTHOPEDIC VISIT Observed: 05/28/2017 Status: F Source: CIRCLE REPORT 9:50 AM [facility] Orthopaedics AND Sports Medicine [address] [place] [address] OFFICE VISIT Date of Service: 05/28/17 MR#: [id number] Acct: [id number] Name: AZUCENACASSIA Jr. Rep #: [id number] : 1980 Provider: Rosette Davidson DO Age/Sex: 36/M Location: [facility] Status: Signed Intake Intake Visit Reasons: RIGHT KNEE Allergies No Known Allergies Allergy (Verified 05/15/17 10:02) Medications Acetaminophen/Codeine #3 [Tylenol #3 Tablet] 1 - 2 tab PO Q6H PRN PRN #30 tab 05/22/17 [Rx] Rivaroxaban [Xarelto] 10 mg PO DAILY #90 tab 05/22/17 [Rx] Zolpidem Tartrate [Ambien (Generic)] 5 mg PO QHS PRN PRN #14 tab 05/22/17 [Rx] hydroxyzine HCl 25 mg tablet 25 mg PO Q6H PRN #40 tab 05/28/17 [Rx Confirmed 05/28/17] triamcinolone acetonide 0.1 % topical cream 1 applic TOPICAL BID #30 g 05/28/17 [Rx Confirmed 05/28/17] PFSH Medical History DVT (deep venous thrombosis) (Acute) Surgical History S/P hernia repair (Inactive) S/P right knee arthroscopy (Inactive) s/p right acl (Inactive) Family History Father Diabetes Hypertension Social History Smoking Status: Never smoker HPI RIGHT KNEE: Details: CASSIA ZENG is a 36 year old M here today for check of his skin after his acl recon last week. He has rash from his right groin to his toes, he took 50mg of benadryl twice yesterday with little relief. He has no calf pain, very little knee pain and has been removing his brace for gentle rom and icing. He has been nwb on crutches. Denies numbness, tingling or other associated symptoms. He has bruising in the distal hamstring secondary to itching, it is worse at night. ROS Armen Reports joint pain, Reports joint swelling, Reports abnormal walking Skin/Breast Reports as per HPI Neuro Yes abnormal walking Ortho Exam Right Knee Skin/Wound: Yes healing, Yes wound care (all over right leg rash ) Contralateral Normal: Yes Swelling: Yes Homans Sign: No Knee ROM: Yes ROM-Extension -20 to 0 (5), No ROM-Flexion 0-140 Assessment AND Plan Problems 1. Orthopedic aftercare Z47.89 2. Rash and nonspecific skin eruption R21 Plan prescribed topical and oral meds and told if condition worsens to call us. see chart for further details. Will prescribe topical and oral medications to treat the rash, from the pre op wash. Instructed to use benadryl prn and ice often Follow up in a week for suture removal or sooner if pain, swelling, numbness or associated symptoms, or concerns develop. All questions answered. Patient in agreement of plan. Medications New: hydroxyzine HCl take one tab every 6 hours as needed for itch25 mg PO Q6H PRN itching ing, call if worsens Coding Level of Care Code Global Post Op Diagnoses Orthopedic aftercare Z47.89 Rash and nonspecific skin eruption R21 05/28/17 0950 <Electronically signed by Rosette Davidson DO> Date Rosette Moffett Signature: Date (if applicable) CC: DISCHARGE INSTRUCTION Observed: 05/22/2017 Status: F Source: COREEN 9:36 AM [facility] REPOSITORY [facility] Medical Records Department [address] [place] [address] Instructions for Home/Discharge Instructions 05/22/17 0733 MR#: [id number] Acct: [id number] Name: CASSIA ZENG Jr. Rep #: [id number] : 1980 36 From: Rosette Davidson DO PCP: Saurabh Zavala MD Status: REG SD ADDENDUM by Rosette Davidson DO on 05/22/17 at 0936 yuridia hose for one week, brace locked in extension during ambulation and at night Date Rosette Davidson DO cc: Saurabh Zavala MD * Signed Discharge Diet: No Restrictions - ttwb right leg, may range knee 0-90, ankle pumps as much as possible and use home ice machine as much as possible, remove dressing in 4 days and apply bandaids to incision, if not draining may get incision wet in shower, call with calf pain or sob or other concerns, start xarelto tonight Discharge Activity: May Not Drive May shower in (days): 1 Ice area for (Minutes): 20 - Every hour while awake. Weight Bearing Status: Weight bearing as tolerated Keep extremity elevated above heart level: Operative Extremity Call your doctor if your incision/area has: Continuous Slow Oozing, Sudden Increased Bleeding, Increased Pain/ Swelling, Increased Redness, Foul Smelling Discharge Call your doctor if you observe: Fever of 101 or Higher, Coldness, Increased Pain, Numbness or Tingling, Change in Color, Calf discomfort Allergies/Adverse Reactions: Allergies No Known Allergies Allergy (Verified 05/15/17 10:02) Medications to take at Discharge Acetaminophen/Codeine #3 [Tylenol #3 Tablet] 1 - 2 tablet PO Q6H PRN PRN #30 tablet 05/22/17 Rivaroxaban [Xarelto] 10 mg PO DAILY #90 tab 05/22/17 Zolpidem Tartrate [Ambien (Generic)] 5 mg PO QHS PRN PRN #14 tablet 05/22/17 The following prescriptions were given: Acetaminophen/Codeine #3 [Tylenol #3 Tablet] 1 - 2 tablet PO Q6H PRN PRN #30 tablet PRN Reason: Pain Rivaroxaban [Xarelto] 10 mg PO DAILY #90 tab Zolpidem Tartrate [Ambien (Generic)] 5 mg PO QHS PRN PRN #14 tablet PRN Reason: Insomnia Primary Care Physician: Saurabh Zavala MD [Primary Care Provider] - Please Follow Up With: Rosette Davidson DO - [phone] 05/22/17 0923 <Electronically signed by Rosette Davidson DO> Date Rosette Davidson DO CC: Saurabh Zavala MD KNEE 1 OR 2 VIEWS Observed: 05/22/2017 Status: F Source: CIRCLE 12:11 AM [facility] Imaging Services [address] [place] [address] Knee 1 or 2 Views MR#: [id number] Acct: [id number] Name: CASSIA ZENG Carlos Alberto Alcaraz. Rep #: [id number] : 1980 M 36 From: Lui Talley MD PCP: Saurabh Zavala MD Status: [facility] Study: Knee 1 or 2 Views Date of Exam: 05/22/17 Exam# [id number] Ordering Dr: Rosette Davidson DO STUDY: X-RAY - RIGHT KNEE REASON FOR EXAM: Postop. TECHNIQUE: A single fluoroscopic view of the knee. COMPARISON: None. FINDINGS: A single AP view demonstrates a pin for anterior cruciate ligament reconstruction. 2 seconds of fluoroscopy time was used. Electronically Signed: Lui Talley MD at 11:17 EDT Tel , Service support , RAD/Knee 1 or 2 Views CC: Rosette Davidson DO; Saurabh Zavala MD Payroll Consultant: Signed ORTHOPEDIC VISIT Observed: 05/17/2017 Status: F Source: COREEN REPORT 12:18 PM [facility] REPOSITORY [facility] Orthopaedics AND Sports Medicine [address] [place] [address] OFFICE VISIT Date of Service: 04/30/17 MR#: [id number] Acct: [id number] Name: CASSIA ZENG Jr. Rep #: [id number] : 1980 Provider: Rosette Davidson DO Age/Sex: 36/M Location: [facility] Status: Signed Intake Intake Visit Reasons: RIGHT KNEE Is patient in pain?: No Allergies No Known Allergies Allergy (Verified 05/15/17 10:02) Medications NK [NK] 04/30/17 [History Confirmed 05/15/17] PFSH Medical History DVT (deep venous thrombosis) (Acute) Surgical History S/P hernia repair (Inactive) S/P right knee arthroscopy (Inactive) s/p right acl (Inactive) Family History Father Diabetes Hypertension Social History Smoking Status: Never smoker HPI RIGHT KNEE: Details: CASSIA ZENG is a 36 year old M here today to sign surgery consent for right knee. He complains of intermittent lateral knee pain with medial knee pain but rarely. Denies radiation of pain. No swelling. No tingling/numbness. Denies recent locking or giving out. He does not take anything for pain. ROS Const Reports system reviewed and no additional complaints, except as docu Eyes Reports system reviewed and no additional complaints, except as docu ENT Reports system reviewed and no additional complaints, except as docu Card Reports system reviewed and no additional complaints, except as docu Resp Reports system reviewed and no additional complaints, except as docu GI Reports system reviewed and no additional complaints, except as docu Reports system reviewed and no additional complaints, except as docu Musc Reports joint pain Skin/Breast Reports system reviewed and no additional complaints, except as docu Neuro Yes system reviewed and no additional complaints, except as docu Psych Reports system reviewed and no additional complaints, except as docu Endo Reports system reviewed and no additional complaints, except as docu Raimundo/Lymph Reports system reviewed and no additional complaints, except as docu Aller/Immun Reports system reviewed and no additional complaints, except as docu Ortho Exam Right Knee Homans Sign: No Examination: Yes Med jt line tenderness, Yes Lat jt line tenderness Stability: 2+: Anterior Drawer, 2+: Tamica Assessment AND Plan Problems 1. Sprain of anterior cruciate ligament of right knee, initial encounter S83.511A 2. Acute medial meniscus tear of right knee, initial encounter S83.241A 3. Deep vein thrombophlebitis of right leg I80.201 4. Other tear of lateral meniscus, current injury, right knee, initial encounter S83.281A Coding Level of Care Code Off vis,est,level 3 Diagnoses Sprain of anterior cruciate ligament of right knee, initial encounter S83.511A Encounter type: initial encounter Acute medial meniscus tear of right knee, initial encounter S83.241A Encounter type: initial encounter Deep vein thrombophlebitis of right leg I80.201 Other tear of lateral meniscus, current injury, right knee, initial encounter S83.281A 05/17/17 1218 <Electronically signed by Rosette Davidson DO> Date Rosette Davidson DO Cosigner Signature: Date (if applicable) CC: CBC W/DIFF, AUTOMATED Collected: 04/26/2017 Status: F Source: COREEN 9:50 AM [facility] REPOSITORY TYPE CODE TESTS RESULT OUT OF RANGE REFERENCE UNITS LAB L100.1000 4.4-11.0 K/mm3 Normal WBC 9.2 LAB L100.1200 4.6-6.2 M/mm3 Normal RBC 5.16 LAB L100.1300 13.0-16.5 g/dl Normal HGB 14.4 LAB L100.1400 40-54 % Normal HCT 44.3 LAB L100.1500 80-94 fL Normal MCV 85.9 LAB L100.1600 27.0-32.0 pg Normal MCH 27.9 LAB L100.1700 32-36 g/gl Normal MCHC 32.5 LAB L100.1810 11.6-14.6 % Normal RDW CV 13.9 LAB L100.1820 35.1-43.9 fl Normal RDW SD 43.5 LAB L100.1900 150-450 K/mm3 Normal PLT 237 LAB L100.2000 6.2-12.0 fl Normal MPV 9.6 LAB L100.2100 47-70 % High NEUT% 75.4 LAB L100.2200 19-41 % Low LY% 15.9 LAB L100.2300 0-10 % Normal MONO% 3.9 LAB L100.2400 0-5 % Normal EO% 4.2 LAB L100.2500 0-1 % Normal BASO% 0.4 LAB L100.2550 0.0-0.9 % Normal IM GRAN % 0.200 Result Comment: IG% - Immature Granulocytes (promyelocytes, myelocytes and metamyelocytes) > 1% indicates that a LEFT SHIFT is Present. LAB L100.2620 2.0-7.7 X10 3/uL Normal Absolute Neut 6.9 LAB L100.2720 0.83-4.51 X10 3/ul Normal Absolute Lymph 1.46 Performed By: #### L100.0100 #### [facility] [address] [place] [address], [id number] D-DIMER QUANTITATIVE Collected: 04/26/2017 Status: F Source: COREEN (DVT/PE) 9:50 AM [facility] REPOSITORY TYPE CODE TESTS RESULT OUT OF RANGE REFERENCE UNITS LAB L300.8000 0.27-0.49 FEU/ug/m Low D-DIMER < 0.27 QUANT Result Comment: NORMAL D-Dimer level (<0.50) indicates no DVT or PE. Performed By: #### L300.8000 #### [facility] [address] [place], [place], [address] ALLERGIES ALLERGIES DATE TYPE / CODE NAME / CODE REACTION SEVERITY SOURCE 08/13/2017 Drug No Known Unknown [facility] Allergy/4160 Allergies/F00 Hospital 25952(SNOMED 3002913(RXNOR Repository CT) M) ENCOUNTERS ENCOUNTERS ADMIT/DISCHARGE ACCOUNT ADMITTING ENCOUNTER LOCATION SOURCE NUMBER CLASS 03/11/2018 [id number] Ambulatory [place] 6 [facility] ing:MFPLAB Repository 02/17/2018 [id number] Ambulatory [place] 5 [facility] ing:PT Repository 10/31/2017/ [id number] Ambulatory BMSBuilding:B [place] 8 1 [place] Repository 08/30/2017 [id number] Ambulatory [place] 3 [facility] ing:LABSPEC Repository 08/14/2017/ [id number] Ambulatory [place] 8 5 [facility] ing:PT Repository 08/13/2017/ [id number] Ambulatory BMSBuilding:B [place] 8 7 [place].[facility] Repository 07/02/2017/ [id number] Ambulatory BMSBuilding:B [place] 8 2 [place] Repository 06/19/2017/ [id number] Emergency [place] 8 1 [facility] ing:ED Repository 06/13/2017 [id number] Ambulatory BMSBuilding:B [place] 9 [place] Repository 06/04/2017/ [id number] Ambulatory BMSBuilding:B [place] 8 7 [place] Repository 05/31/2017/ [id number] Emergency [place] 8 5 [facility] ing:ED Repository 05/28/2017/ [id number] Ambulatory BMSBuilding:B [place] 8 3 [place] Repository 05/22/2017/ [id number] Ambulatory [place] 8 4 [facility] ing:SDC Repository 05/22/2017 [id number] Ambulatory BMSBuilding:B [place] 7 [place] Repository 04/30/2017/ [id number] Ambulatory BMSBuilding:B [place] 8 8 [place].[facility] Repository 04/26/2017 [id number] Ambulatory [place] 8 [facility] ing:MFPLAB Repository PAYERS PAYERS ENCOUNTER GUARANTOR PAYER SUBSCRIBER SOURCE 03/11/2018 CASSIA ZENG Primary CASSIA Angela Jr[address] Insurance:AETNAPolicy Jr.: [facility], Number: [id number] [address]Yhs: [id number] Repository Date:1328-86-19[address]) [address], [place] [address]XD: 03/11/2018 Secondary NOT GIVENUNK [place] Insurance:SELF PAY [facility] Number: Effective Repository Date:2018-03-11 02/17/2018 CASSIA ZENG Primary Insurance:OBW CASSIA Carcamo AZUCENA Mannoster Jr.[address] COMP MANAGEMENTPolicy Jr.: [facility], Number: [id number] [address]Yix: [id number] Repository Date:9365-97-42[address], [place] [address]KS: 02/17/2018 Secondary CASSIA Angela Insurance:AETNAPolicy Jr.: Community Number: [id number] [id number] Repository Date:5320-97-05[address], [place] [address]EN: 02/17/2018 Tertiary NOT GIVENUNK [place] Insurance:SELF PAY [facility] Number: Effective Repository Date:2018-01-02 10/31/2017 CASSIA ZENG Primary Insurance:OB CASSIA Carlos Alberto Mannoster Jr[address] COMP MANAGEMENTPolicy Jr.: [facility], Number: [id number] [address]Bcb: [id number] Repository Date:7057-99-73[address], [place] [address]AQ: 10/31/2017 Secondary CASSIA ZENG [place] Insurance:AETNAPolicy Jr.: Community Number: [id number] [id number] Repository Date:1569-45-95[address] [address]MV: 10/31/2017 Tertiary NOT GIVENUNK [place] Insurance:SELF PAY [facility] Number: Effective Repository Date:2017-08-13 08/30/2017 CASSIA ZENG Primary CASSIA Mannoster Jr[address] Insurance:AETNAPolicy Jr.: [facility], Number: [id number] [address]Vas: [id number] Repository Date:9427-79-83[address]) [address], [place] [address]KI: 08/30/2017 Secondary NOT GIVENUNK [place] Insurance:SELF PAY [facility] Number: Effective Repository Date:2017-08-30 08/14/2017 CASSIA ZENG Primary Insurance:OB CASSIA Mannoster Jr[address] COMP MANAGEMENTPolicy Jr.: [facility], Number: [id number] [place] [address]Gbv: [id number] Repository Date:9497-12-90KP BOX (HP) [address], [place] [address]VG: 08/14/2017 Secondary NOT GIVENUNK [place] Insurance:SELF PAY [facility] Number: Effective Repository Date:2017-06-20 08/13/2017 CASSIA ZENG Primary Insurance:OB CASSIA Mannoster Jr.[address] COMP MANAGEMENTPolicy Jr.: [facility], Number: [id number] [place] [address]Tsv: [id number] Repository Date:1919-27-09NJ BOX (HP) [address] [address]AE: 08/13/2017 Secondary NOT GIVENUNK Coreen Insurance:SELF PAY [facility] Number: Effective Repository Date:2017-08-13 07/02/2017 CASSIA ZENG Primary Insurance:OB CASSIA Carlos Alberto ZENG [place] Jr.96 [address] COMP MANAGEMENTPolicy Jr.: [facility], Number: [id number] [address]Iit: [id number] Repository Date:8149-91-46AD BOX (HP) [address], [place] [address]RB: 07/02/2017 Secondary NOT GIVENUNK Coreen Insurance:SELF PAY [facility] Number: Effective Repository Date:2017-07-02 06/19/2017 CASSIA ZENG Primary Insurance:OB CASSIA Carlos Alberto ZENG Coreen Jr.96 [address] COMP MANAGEMENTPolicy Jr.: [facility], Number: [id number] [address]Cwx: [id number] Repository Date:1199-14-86RS B[address] (HP) [address], [place] [address]SY: 06/19/2017 Secondary NOT GIVENUNK [place] Insurance:SELF PAY [facility] Number: Effective Repository Date:2017-06-19 06/13/2017 CASSIA ZENG Primary Insurance:OB CASSIA Carlos Alberto ZENG Coreen Jr.96 [address] COMP MANAGEMENTPolicy Jr.: [facility], Number: [id number] [address]Zcx: [id number] Repository Date:1991-96-96ZI BOX (HP) [address], [place] [address]BG: 06/13/2017 Secondary NOT GIVENUNK Coreen Insurance:SELF PAY [facility] Number: Effective Repository Date:2017-06-10 06/04/2017 CASSIA ZENG Primary Insurance:OB CASSIA Carlos Alberto ZENG Coreen Jr.96 [address] COMP MANAGEMENTPolicy Jr.: [facility], Number: [id number] [address]Dni: [id number] Repository Date:8803-24-43QZ BOX (HP) [address], [place] [address]UK: 06/04/2017 Secondary NOT GIVENUNK Coreen Insurance:SELF PAY [facility] Number: Effective Repository Date:2017-06-04 05/31/2017 CASSIA ZENG Primary Insurance:OB CASSIA Carlos Alberto ZENG Coreen Jr.96 [address] COMP MANAGEMENTPolicy Jr.: [facility], Number: [id number] [address]Dnk: [id number] Repository Date:0664-07-95JW B[address] (HP) [address], [place] [address]EZ: 05/31/2017 Secondary NOT GIVENUNK Coreen Insurance:SELF PAY [facility] Number: Effective Repository Date:2017-05-31 05/28/2017 CASSIA ZENG Primary Insurance:OB CASSIA Carcamo AZUCENA Coreen Jr.96 [address] COMP MANAGEMENTPolicy Jr.: [facility], Number: [id number] [facility] [address]Nrx: [id number] Repository Date:6898-35-63WM B[address] (HP) [address], [place] [address]QJ: 05/28/2017 Secondary NOT GIVENUNK Coreen Insurance:SELF PAY [facility] Number: Effective Repository Date:2017-05-28 05/22/2017 CASSIA ZENG Primary Insurance:OB CASSIA Carlos Alberto ZENG Coreen Jr.96 [address] COMP MANAGEMENTPolicy Jr.: [facility], Number: [id number] [address]Plx: [id number] Repository Date:5839-97-98EA [address] (HP) [address], [place] [address]JX: 05/22/2017 Secondary NOT GIVENUNK Coreen Insurance:SELF PAY [facility] Number: Effective Repository Date:2017-05-02 05/22/2017 CASSIA ZENG Primary Insurance:OBWC CASSIA ZENG [place]t Jr.96 [address] COMP MANAGEMENTPolicy Jr.: [facility], Number: [id number] [facility] [address]Djj: [id number] Repository Date:8890-22-61AN B[address] (HP) [address] [address]ZX: 05/22/2017 Secondary NOT GIVENUNK [place] Insurance:SELF PAY [facility] Number: Effective Repository Date:2017-05-22 04/30/2017 CASSIA ZENG Primary CASSIA ZENG Coreen Jr.96 [address] Insurance:AETNAPolicy Jr.: [facility], Number: [id number] [address]Ccy: [id number] Repository Date:1206-04-49CT [address]OX () [address] [address]NX: 04/30/2017 Secondary NOT GIVENUNK [place] Insurance:SELF PAY [facility] Number: Effective Repository Date:2017-05-08 04/26/2017 CASSIA ZENG Primary CASSIA Mannoster Jr.96 [address] Insurance:AETNAPolicy Jr.: [facility], Number: [id number] [address]Ftr: [id number] Repository Date:2213-09-97NN BOX () [place] [address]MJ: 04/26/2017 Secondary NOT GIVENUNK [place] Insurance:SELF PAY [facility] Number: Effective Repository Date:2017-04-26
== END ==
PROVIDERS: Family Provider Family Medicine; PCP Family Medicine; Visit Provider Family Medicine
DX: Z00.00 Encounter for general adult medical examination without abnormal findings (principal); Z86.718 Personal history of other venous thrombosis and embolism
CPT/HCPCS: 36415; 81241; 85302; 85305; 85306; 86706

== ENCOUNTER → 2019-04-29 | Outpatient (CLI) | payer OTHER, SELFPAY ==
[2019-04-29 12:48] LABS: Anion Gap 5 (5-15); BUN 10 mg/dL (7-18); BUN/Creat Ratio 11.3 RATIO (10-20); Calcium,Total 8.5 mg/dL (8.5-10.1); Chloride 108 mmol/L (98-107); Cholesterol 200 mg/dL (200); Creatinine, Serum 0.89 mg/dL (0.70-1.30); EST Glomerular Filtration Rate 103 mL/min (>60); Est Glom Filt Rate - Afr Amer 124 mL/min (>60); Glucose 138 mg/dL (74-106); High Density Lipoprotein 30 mg/dL; Potassium 4.1 mmol/L (3.5-5.1); Sodium Level 139 mmol/L (136-145); Triglycerides 219 mg/dL; Very Low Density Lipoprotein 44 mg/dL (5-40)
[2019-04-29 13:18] LABS: Hemoglobin A1c 6.4 % (4.2-6.3)
[2019-05-02 08:05] LABS: Vitamin D,25 Hydroxy 16.7 ng/mL
== END | disposition home or self-care (01) ==
LOC: MFPLAB 09:56
PROVIDERS: PCP Family Medicine; Referring Provider Family Medicine; Visit Provider Family Medicine
DX: Z00.00 Encounter for general adult medical examination without abnormal findings (principal)
CPT/HCPCS: 36415; 80048; 80061; 82306; 83036

== ENCOUNTER 2022-02-13 15:00 | Outpatient (RCR) | payer OTHER, SELFPAY | END 2022-02-17 23:59 | LOC: DC 15:00 | PROVIDERS: PCP Family Medicine; Referring Provider Nurse Practitioner Family; Visit Provider Nurse Practitioner Family | DX: E11.9 Type 2 diabetes mellitus without complications (principal) | CPT/HCPCS: 97802; G0108 ==

== ENCOUNTER 2022-03-14 16:19 | Outpatient (RCR) | payer OTHER, SELFPAY | END 2022-03-20 23:59 | LOC: DC 16:19 | PROVIDERS: PCP Family Medicine; Referring Provider Nurse Practitioner Family; Visit Provider Nurse Practitioner Family | DX: E11.9 Type 2 diabetes mellitus without complications (principal) | CPT/HCPCS: 97803 ==

== ENCOUNTER 2022-04-18 16:25 | Outpatient (RCR) | payer OTHER, SELFPAY | END 2022-05-18 23:59 | LOC: DC 16:25 | PROVIDERS: PCP Family Medicine; Referring Provider Nurse Practitioner Family; Visit Provider Nurse Practitioner Family | DX: E11.9 Type 2 diabetes mellitus without complications (principal) | CPT/HCPCS: 97803 ==

== ENCOUNTER 2022-05-30 16:36 | Outpatient (RCR) | payer OTHER, SELFPAY | END 2022-06-17 23:59 | LOC: DC 16:36 | PROVIDERS: PCP Family Medicine; Referring Provider Nurse Practitioner Family; Visit Provider Nurse Practitioner Family | DX: E11.9 Type 2 diabetes mellitus without complications (principal) | CPT/HCPCS: 97803 ==

== ENCOUNTER → 2022-07-10 | Outpatient (CLI) | payer OTHER, SELFPAY ==
--- NOTE | 2022-07-10 16:47 | CT_ITS ---
EXAM: CT MAXILLOFACIAL SINUSES WITHOUT INTRAVENOUS CONTRAST CLINICAL INDICATION: SINUSITIS TECHNIQUE: Helically acquired images were obtained of the maxillofacial sinuses without intravenous contrast. This CT exam was performed using one or more of the following dose reduction techniques: automated exposure control, adjustment of the mA and/or kV according to patient size, and/or use of iterative reconstruction technique. COMPARISON: No relevant prior studies available. FINDINGS: MAXILLARY SINUSES: There is total opacification of the right maxillary sinus. There is opacification of several right-sided ethmoid air cells. There is occlusion of the right ostiomeatal complex. SPHENOID SINUSES: Clear. FRONTAL SINUSES: Clear. ETHMOID AIR CELLS: See above. NASAL CAVITY/SEPTUM: Nasal septum is midline. Nasal turbinates are unremarkable. BONES/JOINTS: See above. ORBITS: Unremarkable. DENTAL: Unremarkable as visualized. No periodontal osseous erosion. CT/Sinus/Facial Bone IMPRESSION: Total opacification of the right maxillary sinus with soft tissue in the right ostiomeatal complex. There is also opacification of several right sided ethmoid air cells. Electronically Signed: Fuentes Alva MD at 20:39 EDT ,
== END | disposition home or self-care (01) ==
LOC: CT 16:43
PROVIDERS: PCP Family Medicine; Referring Provider Otolaryngology; Visit Provider Otolaryngology
DX: J32.8 Other chronic sinusitis (principal); J33.0 Polyp of nasal cavity
CPT/HCPCS: 70486

== ENCOUNTER 2022-08-01 16:24 | Outpatient (RCR) | payer OTHER, SELFPAY | END 2022-08-17 23:59 | LOC: DC 16:24 | PROVIDERS: PCP Family Medicine; Referring Provider Nurse Practitioner Family; Visit Provider Nurse Practitioner Family | DX: E11.9 Type 2 diabetes mellitus without complications (principal) | CPT/HCPCS: 97803 ==

== ENCOUNTER → 2022-12-17 | Outpatient (CLI) | payer OTHER, SELFPAY | END | disposition home or self-care (01) | LOC: LABSPEC 16:43 | PROVIDERS: PCP Family Medicine; Visit Provider Podiatrist Foot & Ankle Surgery | DX: L02.611 Cutaneous abscess of right foot (principal) | CPT/HCPCS: 87070; 87075; 87077; 87186; 87205 ==

== ENCOUNTER 2023-01-23 15:17 | Outpatient (CLI) | payer OTHER, SELFPAY ==
--- NOTE | 2023-01-22 10:00 | NASAL_PTH ---
PATIENT: CASSIA ZENG Jr. LOC: [facility] U#:[id number] AGE/SX: 42/M ROOM: RE01/23/[address]: Dr. Bart Aguiar MD : 1980 BED: DIS: 01/23/2023 SPEC #: [id number] RECD: 01/24/23 09:15 STATUS: JESUS RESenthil #: [id number] TENZIN: 01/22/23 10:[address]: Bart Aguiar DEPT: SURGICAL PATHOLOGY RECD BY: Nani Duckworth ENTERED: 01/24/23 09:15 SP TYPE: NASAL SPEC OTHR DR: Dr. Saurabh Zavala MD [facility] Tissues: A - Ethmoid sinus, NOS B - Ethmoid sinus, NOS Procedures: Decalcification bone/plaque Surgery Specimen Level IV HEADER OPERATION: Septoplasty, resection of inferior turbinates, maxillary antrostomy, functional endoscopic sinus surgery, nasal polypectomy PRE-OP DIAGNOSIS: Nasal congestion, deviated nasal septum, polyp of nasal cavity, other chronic sinusitis TISSUE SUBMITTED: A - Right sinus content, B - Left sinus content MICROSCOPIC DIAGNOSIS A. Right sinus contents, curettings: Fragments of benign sinonasal polyp, inflamed. Fragments of hyaline cartilage and bone. B. Left sinus contents, curettings: Chronic sinusitis. Fragments of bone with no pathologic change. AM:reymundo 01/30/2023 MICROSCOPIC DESCRIPTION Slides are reviewed. GROSS DESCRIPTION A - Received in fixative is one container labeled with the patient's name and designated right sinus contents. The specimen consists of multiple pieces of logan polypoid tissue mixed with fragments of bone that in aggregate measure 3.0 x 3.0 x 0.6 cm. The largest piece is serially sectioned. The entire specimen is submitted in three cassettes as follows: 1 & 2 - soft tissue, 3 - fragments of bone after decalcification. B - Received in fixative is one container labeled with the patient's name and designated left sinus contents. The specimen consists of multiple irregular fragments of logan soft tissue mixed with fragments of bone that in aggregate measure 2.0 x 1.0 x 0.3 cm. The entire specimen is submitted in one cassette after decalcification. / MY:reymundo 01/24/2023 TC:3 CPT: 35244 x2, 61656 x2
== END 2023-01-23 23:59 | disposition home or self-care (01) ==
LOC: LABSPEC 15:21
PROVIDERS: PCP Family Medicine; Referring Provider Otolaryngology; Visit Provider Otolaryngology
DX: J33.0 Polyp of nasal cavity (principal); R09.81 Nasal congestion; J34.2 Deviated nasal septum; J32.9 Chronic sinusitis, unspecified
CPT/HCPCS: 88305; 88311

== ENCOUNTER → 2024-07-07 | Outpatient (CLI) | payer OTHER, SELFPAY ==
--- NOTE | 2024-07-07 18:47 | CT_ITS ---
PROCEDURE: SINUS/FACIAL BONE REASON FOR EXAM: CHRONIC SINUSITIS TECHNIQUE: CT of the paranasal sinuses without contrast. Coronal and Sagittal reconstruction series were provided. One or more dose reduction techniques were used (e.g., Automated exposure control, adjustment of the mA and/or kV according to patient size, use of iterative reconstruction technique). COMPARISON: None available FINDINGS: The paranasal sinuses are well formed. No wall thickening or sclerosis. Very mild mucoperiosteal thickening inferior left frontal sinus. The right frontal sinus is clear. The sphenoid sinuses are clear. Sphenoethmoidal recesses appear patent for example axial 123. Opacified right middle and posterior ethmoidal air cells with some frothy material in a left-sided ethmoidal air cell. Bilateral large maxillary antral windows/defects. Minimal mucoperiosteal thickening inferior left maxillary sinus. Small lobular soft tissue focus posterolateral left maxillary sinus measuring around 6 mm axial 102 and coronal 62. A large fungating lobular polypoid soft tissue mass within the right maxillary sinus extends across and fills the medial wall antral window/defect into the nasal cavity and a clear distinction plane is not seen with the adjacent portions of the right middle and inferior turbinates for example axial 107 and coronal 45 measuring approximately 3.4 x 3.5 x 3.8 cm. This mostly fills the right maxillary sinus with probable areas of associated mucoperiosteal thickening as well. No paranasal sinus air-fluid levels identified. No significant nasal septal deviation or nasal spur identified. A small left taylor bullosa appears incidental. The orbits appear within limits. Bilateral pterygopalatine foramen appear within limits. The infratemporal fossa fat appears preserved. No dental periapical lucency identified. TMJs appear normally located. The mastoids, middle ears and internal auditory canals appear within limits. Midline ossification along the dorsal aspect of C5 and C6 for example sagittal 92 with some associated central canal narrowing. CT/Sinus/Facial Bone IMPRESSION: Areas of paranasal sinus disease as detailed above most notably with a large fu ngating lobular polypoid soft tissue mass within the right maxillary sinus extends across and fills the medial wall antral windo w/defect into the nasal cavity and a clear distinction plane is not seen with the adjacent portions of the right middle an d inferior turbinates for example axial 107 and coronal 45 measuring approximately 3.4 x 3.5 x 3.8 cm. This mostly fills the r ight maxillary sinus with probable areas of associated mucoperiosteal thickening as well. Reading Location: [id number]
== END | disposition home or self-care (01) ==
LOC: CT 18:44
PROVIDERS: PCP Family Medicine; Visit Provider Otolaryngology
DX: J32.9 Chronic sinusitis, unspecified (principal)
CPT/HCPCS: 70486

== ENCOUNTER 2024-07-28 09:06 | Day surgery (SDC) | payer OTHER, SELFPAY ==
[2024-07-28] VITALS (8 sets, daily range): BP systolic 135–150; BP diastolic 84–91; PULSE 72–86; RESP 16–18; TEMP 2.4–36.4; O2SAT 94–99; BMI 37.2
[2024-07-28] MEDS: Lactated Ringers 1,000 ML 15 ML IV (09:42)
--- NOTE | 2024-07-28 09:42 | PCM.PRE.AN2 ---
ASA Classification* ASA Classification ASA Classification: 2 Assessment & Plan Anesthesia* Anesthesia Assessment Anesthesia Assessment: Discussed sedation and/or anesthesia options, risks, benefits, and alternatives with patient/parents/legal guardian/POA. Questions invited. The patient/parents/legal guardian/POA seems to understand and agrees to proceed with anesthesia plan. Reviewed the physical assessment, medical history, allergy history and patient home medications list prior to surgery/procedure/anesthetic and documented any changes. Performed airway and anesthesia risk assessments. Anesthesia Type Anesthesia Type: General Anesthesia Focused Assessment* Temperature: 97.4 F Pulse Rate: 73 Blood Pressure: 145/91 Respiratory Rate: 16 Pulse Ox: 99 Airway Assessment Mouth opens: >3 cm Mallampati Score: II Labs Anesthesia Preop lab: CBC WBC 9.2 K/mm3 (4.4-11.0) 04/26/17 09:50 04/26/17 RBC 5.16 M/mm3 (4.6-6.2) 04/26/17 09:50 04/26/17 Hgb 14.4 g/dl (13.0-16.5) 04/26/17 09:50 04/26/17 Hct 44.3 % (40-54) 04/26/17 09:50 04/26/17 Plt Count 237 K/mm3 (150-450) 04/26/17 09:50 04/26/17 CHEMISTRY Potassium 4.1 mmol/L (3.5-5.1) 04/29/19 09:57 04/29/19 Sodium 139 mmol/L (136-145) 04/29/19 09:57 04/29/19 BUN 10 mg/dL (7-18) 04/29/19 09:57 04/29/19 Creatinine 0.89 mg/dL (0.70-1.30) 04/29/19 09:57 04/29/19 Glucose 138 mg/dL (74-106) H 04/29/19 09:57 04/29/19 COAG Pre-Assessment Diagnosis/Proposed Procedure Planned Operative Procedure(s): Functional Endoscopoic Sinus Surgery, Navigation Anesthesia History 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 When Was Last Pacemaker Check QUESTION #4 FULL TEXT: You/Your Family Experience fever (hyperthermia) with Anesthesia Last Oral Intake Last Oral intake: Last Oral Intake NPO since 22:30 07/28/24 09:31 Meds taken in AM with sips of No 07/28/24 09:31 water? Meds patient instructed to take am of surgery PONV PONV - equipment installation professional: PONV - equipment installation professional Female No 07/21/24 13:55 HX of Motion Sickness No 07/21/24 13:55 HX of N/V After Surgery Yes 07/21/24 13:55 Non-Smoker Yes 07/21/24 13:55 Duration of Surgery greater No 07/21/24 13:55 than 60 minutes Number of Risk Factors 2 07/21/24 13:55 PONV Score Moderate Risk 07/21/24 13:55 Height & Weight Height & Weight: Anesthesia: Height & Weight Height 5 ft 10 in 07/28/24 09:31 Weight: 117.6 kg 07/28/24 09:31 Body Mass Index (BMI) 37.2 07/28/24 09:31 Respiratory Assessment Respiratory Assessment - equipment installation professional: Respiratory Tract Infection Hx - equipment installation professional Hx Respiratory Tract Infection No 07/21/24 13:55 STOP Sleep Apnea STOP Sleep Apnea - equipment installation professional: STOP Sleep Apnea - equipment installation professional Hx Hypertension Yes 07/21/24 13:55 Hx Sleep Apnea No 07/21/24 13:55 CPAP No 05/22/17 09:43 BIPAP Do you snore loudly (louder No 07/21/24 13:55 than talking or can be heard Do you often feel tired/ No 07/21/24 13:55 fatigued/ sleepy during daytime? Has anyone observed you stop No 07/21/24 13:55 breathing during sleep? STOP Results Negative 07/21/24 13:55 QUESTION #5 FULL TEXT : Do you snore loudly (louder than talking or can be heard through closed doors)? 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 Specify any problems Hx of Preganancy in last 3 N/A 07/21/24 13:55 Months Nurse Filling Out Transfusion [facility] 07/21/24 13:55 & Questions: Date: 07/21/24 07/21/24 13:55 Time: 13:57 07/21/24 13:55 Patient unable to answer at this time (ie. confused, unrespo /Reproduction History /Reproductive History - equipment installation professional: /Reproductive Hx- equipment installation professional Hx Now Gestational Age (in weeks): EDC: Hx Hx Para Hx Section SAB Active Medications Active Medications: Current Medications Generic Name Dose Route Start Last Admin Trade Name Freq PRN Reason Stop Dose Admin Clindamycin Phosphate 900 mg in 50 mls @ 75 mls/hr 07/28/24 10:45 Cleocin IV 07/28/24 11:24 INTRAOP ONE Lactated Ringer's 1,000 mls @ 15 mls/hr 07/28/24 09:15 07/28/24 09:42 IV 15 mls/hr .Q48H VY Administration PFSH Medical History Wears contact lenses Wears glasses Arthritis High cholesterol Injury of back Heartburn Non-smoker History of stress test Hypertension History of deviated nasal septum DVT (deep venous thrombosis) Home Medications ?Medication ?Instructions ?Recorded ?Last Taken ?Type prednisone 10 mg tablet 30 mg PO DAILY 07/21/24 Unknown History rosuvastatin 5 mg tablet 5 mg PO DAILY 07/21/24 Unknown History lisinopril 10 mg tablet 10 mg PO DAILY 07/27/24 Unknown History Allergy/AdvReac Type Severity Reaction Status Date / Time No Known Allergies Allergy Verified 07/28/24 09:30 Family History Father Diabetes Hypertension Surgical History s/p right ACL reconstruction S/P right knee arthroscopy s/p right acl S/P hernia repair Social History Smoking Status: Never smoker Review of Systems (Anesthesia) ROS Narrative System reviewed and no additional complaints, except as documented.
--- NOTE | 2024-07-28 10:45 | ETH_PTH ---
PATIENT: CASSIA ZENG Jr. LOC: [facility] U#:[id number] AGE/SX: 44/M ROOM: RE07/28/[address]: Dr. Bart Aguiar MD : 1980 BED: DIS: 07/28/2024 SPEC #: [id number] RECD: 07/28/24 12:53 STATUS: JESUS DAMON #: [id number] TENZIN: 07/28/24 10:[address]: Bart Aguiar DEPT: SURGICAL PATHOLOGY RECD BY: Thanh Broderick ENTERED: 07/28/24 13:16 SP TYPE: ETH TISS OTHR DR: Dr. Saurabh Zavala MD Tissues: A - Ethmoid sinus, NOS Procedures: Surgery Specimen Level IV HEADER OPERATION: Functional endoscopic sinus surgery, Navigation PRE-OP DIAGNOSIS: Chronic sinusitis, chronic allergic rhinitis TISSUE SUBMITTED: A- Right sinus contents MICROSCOPIC DIAGNOSIS A. Right nasal sinus contents, endoscopic sinus surgery: * Inverted squamous papilloma, benign * Inflammatory nasal polyps, benign MICROSCOPIC DESCRIPTION Slides are reviewed. GROSS DESCRIPTION A. Received in formalin labeled with the patient's name and date of . Designated as right sinus content is a 5.0 x 3.5 x 0.9 cm aggregate of irregular, edematous logan tissue fragments and clotted blood. Lodging House Keeper sections are submitted in 2 cassettes. [facility] 07/28/2024 CPT:42240
--- NOTE | 2024-07-28 11:28 | DCINST_ITS ---
Discharge Instructions Diet Discharge Diet: No restrictions DC O2, CPAP, BIPAP needs Home O2 Discharge instructions: No Dressing / Incision Call your doctor if your incision/area has: Sudden Increased Bleeding Additional Dressing/Incision Instructions:: nasal saline 5 times daily, sleep with head of bed elevated. Follow Up Care Please Follow Up With: Bart Aguiar MD When: 1 week Test Results: Test results from this visit will be discussed in further detail at your follow- up appointment, if applicable. Discharge Plan Admission Attending Provider: Bart Aguiar Primary Care Provider: Saurabh Zavala Instructions Print Language: Ugandan Discharge Orders/Prescriptions Prescriptions: No Action rosuvastatin 5 mg tablet 5 mg PO DAILY prednisone 10 mg tablet 30 mg PO DAILY lisinopril 10 mg tablet 10 mg PO DAILY Referrals / Follow Up: Saurabh Zavala MD [Primary Care Provider] - Disposition Disposition (needs filled in before D/C Order can be placed): Home, Self Care
--- NOTE | 2024-07-28 11:29 | PCM.OPRPT ---
Problems Associated Problem List Diagnoses (1) Chronic pansinusitis: (2) Sinusitis with nasal polyps: Operative Report (Standard) Operative Information Date of Procedure: 07/28/24 Pre-Operative Diagnosis: 1. Chronic pansinusitis 2. Sinonasal polyposis Post-Operative Diagnosis: 1. Chronic pansinusitis 2. Sinonasal polyposis Surgery/Procedure Performed: 1. endoscopic maxillary antrostomy with removal of contents, right and left 2. endoscopic total ethmoidecotmy, right and left 3. endoscopic sphenoidotomy with removal of contents, right and left 4. endoscopic frontal sinus exploration removal of contents, right and left 5. 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 The patient was placed under general endotracheal anesthesia by the anesthesiologist. The endotracheal tube was secured.? image guidance navigation was set up on the face and accuracy was confirmed.? the nose was decongested with oxymetazoline-soaked pledgets.? the zero degree endoscope was used to evaluate the nasal cavity.? the superior attachment of the right and left middle turbinate and uncinate processes were injected with lidocaine/epinephrine.? the left nasal cavity was evaluated.? the middle turbinate was medialized.? a large amount of polyp tissue was removed with the microdebrider. the polyp seemed to originate from the entire maxillary sinus and inferior portion of the lamina. a revision maxillary antrostomy and uncinectomy were performed with a mariely elevator and a tobi cut.? the antrostomy was widened with a back-biter.? purulent material was evacuated.? the ethmoid bulla was entered bluntly with the suction.? a revision total ethmoidectomy was performed with a curette and an upgoing blakesley.? this was taken superiorly to the skull base and laterally to the lamina.? a stankewicz maneuver was performed and no laminar defect was noted.? the natural sphenoid os was widened with the microdebrider and contents were evacuated.? fungus was removed from the sphenoethmoidal recess.? the frontal recess was explored and contents were evacuated.? additional polyps were removed hemostasis was achieved with suction cautery; gloria was placed. the right nasal cavity was evaluated.? the middle turbinate was medialized.? a large amount of polyps were removed with the microdebrider a maxillary antrostomy and uncinectomy were performed with a mariely elevator and a tobi cut.? the antrostomy was widened with a back-biter.? purulent material was evacuated.? the ethmoid bulla was entered bluntly with the suction.? a total ethmoidectomy was performed with a curette and an upgoing blakesley.? this was taken superiorly to the skull base and laterally to the lamina.? a stankewicz maneuver was performed and no laminar defect was noted.? the natural sphenoid os was widened with the microdebrider and contents were evacuated.? fungus was removed from the sphenoethmoidal recess.? the frontal recess was explored and contents were evacuated.? hemostasis was achieved with suction cautery; gloria was placed. a nasogastric tube was inserted orally and contents were evacuated.? the table was rotated 90 degrees toward the anesthesiologist and? was subsequently extubated uneventfully.? he was transferred to the PACU in stable condition. Surgical Findings: n/a Complications Complications: No
[2024-07-28] MEDS: Clindamycin 900 MG/50 ML BAG 75 MG IV (11:37)
[2024-07-28] MEDS: Oxymetazoline 0.05% 1 SPRAY SPRAY.BTL 15 SPRAY ×2 (11:48→12:03)
--- NOTE | 2024-07-28 12:43 | PCM.POST.ANE ---
Anesthesia: Postop Eval I Current Vital Signs Temperature: 36.4 F Pulse Rate: 79 Blood Pressure: 150/90 Respiratory Rate: 18 Pulse Ox: 99 Oxygen Delivery Method: Venturi Mask Oxygen Flow Rate (L/min): 6 Assessment Airway patent: Yes Spontaneous unlabored respirations: Yes Mental status: Awake and Calm nausea: No Vomiting: No Anesthesia Complication: No Fluid Hydration Crystalloid volume administer (ml): 800 Total IV fluid infused: 800 Progress Note Anesthesia document: Postop Eval 1 completed: Yes
--- NOTE | 2024-07-28 12:55 | POSTOPAN2_ITS ---
Anesthesia Postop Eval I Sum Postop Eval Completion status Anesthesia document: Postop Eval 1 completed: Yes Anesthesia Postop Eval I Summary Anesthesia Postop Eval I Summary: Anesthesia Postop Eval I: Assessment Summary Airway patent Yes 07/28/24 12:45 DIRECTOR [email or web address] Spontaneous unlabored Yes 07/28/24 12:45 DIRECTOR [email or web address] respirations Mental status Awake,Calm 07/28/24 12:45 DIRECTOR [email or web address] nausea No 07/28/24 12:45 DIRECTOR [email or web address] Vomiting No 07/28/24 12:45 DIRECTOR [email or web address] Anesthesia Postop Eval I: Fluid Summary Crystalloid volume administer 800 07/28/24 12:45 DIRECTOR [email or web address] (ml) Colloids volume administered ( ml) Blood Product volume administered (ml) Total IV fluid infused 800 07/28/24 12:45 DIRECTOR [employer] [email or web address] Anesthesia Postop Eval I: Summary Notes Anesthesia Complication No 07/28/24 12:45 DIRECTOR [email or web address] Anesthesia Complication Comment: Post-operative progress note Anesthesia: Postop Eval II Evaluation Mental status: Awake Pain Level: 0 nausea: No Vomiting: No
--- NOTE | 2024-07-28 12:55 | PCM.POSTANE2 ---
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 Spontaneous unlabored Yes 07/28/24 12:45 RECTANGULAR TANK [email or web address].[email or web address] respirations Mental status Awake,Calm 07/28/24 12:45 [email or web address] TANK [email or web address] nausea No 07/28/24 12:45 RECTANGULAR TANK COOPER.[email or web address] Vomiting No 07/28/24 12:45 RECTANGULAR TANK [email or web address] Anesthesia Postop Eval I: Fluid Summary Crystalloid volume administer 800 07/28/24 12:45 RECTANGULAR TANK COOPER.[email or web address] (ml) Colloids volume administered ( ml) Blood Product volume administered (ml) Total IV fluid infused 800 07/28/24 12:45 RECTANGULAR TANK [email or web address] Anesthesia Postop Eval I: Summary Notes Anesthesia Complication No 07/28/24 12:45 RECTANGULAR TANK [email or web address].[email or web address] Anesthesia Complication Comment: Post-operative progress note Anesthesia: Postop Eval II Evaluation Mental status: Awake Pain Level: 0 nausea: No Vomiting: No
== END 2024-07-28 13:43 | disposition home or self-care (01) ==
LOC: SDC 09:12 → AC 09:12
PROVIDERS: PCP Family Medicine; Referring Provider Otolaryngology; Visit Provider Otolaryngology
PROC: (CPT 31259; principal; 2024-07-28 10:15)
DX: J32.4 Chronic pansinusitis (principal); D14.0 Benign neoplasm of middle ear, nasal cavity and accessory sinuses; I10 Essential (primary) hypertension; E78.00 Pure hypercholesterolemia, unspecified; Z86.718 Personal history of other venous thrombosis and embolism; Z79.899 Other long term (current) drug therapy
CPT/HCPCS: 31259; 31267; 31276; 61782; 00160; 88305

== ENCOUNTER → 2025-01-01 | Outpatient (CLI) | payer OTHER, SELFPAY ==
--- NOTE | 2025-01-01 07:57 | MRI_ITS ---
PROCEDURE: MRI ABD WITH AND W/O CONTRAST, 01/01/2025 REASON FOR EXAM: HEPATOMEGALY TECHNIQUE: Multiplanar multisequence MRI abdomen was performed with and without IV contrast. IV contrast: 23 mL Clariscan COMPARISON: None FINDINGS: Variable overall mild motion limitation with some apparent misregistration between sequences. Coronal T2 and T2 fat-sat sequences were not performed. Liver: Lobulated circumscribed homogeneously T2 bright and T1 dark 17 x 16 mm lesion in segment II demonstrates progressive nodular enhancement however initial enhancement is both central and peripheral.. Lesion appears somewhat homogeneously hyperintense on the most delayed coronal postcontrast sequence obtained (series is 23 image 27). Additional 13 x 7 mm T1 dark and T2 bright RIGHT lesion near the gallbladder fossa. Enhancement pattern difficult to characterize due to small size but appears to demonstrate delayed enhancement and is similarly homogeneously hyperintense on delayed postcontrast coronal imaging (series 23 image 42). Spleen: Mild splenomegaly, 13.3 cm coronal.. Gallbladder/biliary: Unremarkable. Pancreas: Unremarkable. Adrenals: Unremarkable. Kidneys: 20 x 20 mm T1 and T2 bright lesion at the anterior RIGHT interpolar to upper pole, unable to evaluate for superimposed enhancement in the absence of subtraction sequences. Additional small probable cysts, although a few also demonstrate some mild T1 signal to a lesser degree than the dominant RIGHT renal lesion. Bowel: Suboptimally evaluated by MRI; no gross bowel dilatation. Lymph nodes: Unremarkable. Vasculature: Circumaortic LEFT renal vein, normal variant.. Peritoneum: Unremarkable. Bones: There appear to be three T1 and T2 bright presumed vertebral body hemangiomas within the lumbar spine. MRI/MRI Abd WITH and W/O Contrast IMPRESSION: 1. 17 mm heaptic lesion with appearance on some sequences compatible with heman gioma, however the with slightly atypical enhancement pattern. Smaller 13 mm lesion is difficult to characterize on post -contrast sequences due to size but is otherwise similar in apperance. Given these remain indeterminate/atypical, recommend fol low-up to document stability. This could be by ultrasound which could additionally further evaluate for the expected sonograph ic appearance of hemangiomata. Comparison with reported outside imaging would be helpful, particularly if remote imaging is av ailable to establish long-term stability. 2. 20 mm indeterminate RIGHT renal lesion may reflect a hemorrhagic/proteinaceo us cyst, however unable to definitively characterize on this hepatic protocol exam. Recommend targeted renal ultrasoun d and potentially multiphase renal protocol CT/MRI with and without contrast if this is not visualized or does not appear sonograp hically consistent with a simple cyst. Note, additional bilateral renal lesions are present however the 20 mm indeterminate lesion on the RIGHT is the largest. Note also, if renal protocol MRI is pursued as opposed to CT, this should include subtraction sequences. Comparison with reported outside imaging may again be helpful. 3. Mild splenomegaly. 4. Additional description as above. Reading Location: [id number]
== END | disposition home or self-care (01) ==
LOC: MRI 07:51
PROVIDERS: PCP Family Medicine
DX: R16.0 Hepatomegaly, not elsewhere classified (principal)
CPT/HCPCS: 74183; A9575; A4216

== ENCOUNTER → 2025-01-12 | Outpatient (CLI) | payer OTHER, SELFPAY ==
--- NOTE | 2025-01-12 17:41 | US_ITS ---
PROCEDURE: KIDNEY AND BLADDER 01/12/2025 REASON FOR EXAM: BILATERAL RENAL MASS SEEN ON MRI TECHNIQUE: Procedure Code: USKI Modality: US Procedure: KIDNEY AND BLADDER FINDINGS: Right kidney measures 11.9 cm and left kidney measures 12.6 cm. Normal echotexture of bilateral kidneys. No hydronephrosis. No renal stones. Cysts within the bilateral kidneys measuring up to 2.4 cm within the right and 1.1 cm within left. Urinary bladder is unremarkable. US/Kidney and Bladder IMPRESSION: No hydronephrosis. Bilateral renal cysts as above. Reading Location: [id number]
== END | disposition home or self-care (01) ==
LOC: US 17:37
PROVIDERS: PCP Family Medicine
DX: N28.89 Other specified disorders of kidney and ureter (principal)
CPT/HCPCS: 76770

== ENCOUNTER → 2025-01-13 | Outpatient (CLI) | payer OTHER, SELFPAY ==
--- NOTE | 2025-01-13 08:20 | US_ITS ---
PROCEDURE: ABDOMEN LIMITED 01/13/2025 REASON FOR EXAM: LIVER MASS TECHNIQUE: Procedure Code: USABDL Modality: US Procedure: ABDOMEN LIMITED FINDINGS: GALLBLADDER: No gallstones. no gallbladder wall thickening or pericholecystic fluid. Negative Cohen sign. COMMON BILE DUCT: Measures 3.1 mm. No intrahepatic biliary dilatation. LIVER: Mild hepatomegaly to 17.3 cm. Increased echogenicity.. 1.2 x 2.2 x 0.7 cm hyperechoic structure within the left hepatic lobe may reflect a hemangioma. RIGHT KIDNEY: Normal in size and echogenicity. No mass. No urinary stones. No hydronephrosis. Cysts measuring 2.3 x 2.1 x 1.8 cm and 1.2 x 0.9 x 0.6 cm. Pancreas: Within normal limits. US/Abdomen Limited IMPRESSION: Hepatic steatosis. 1.2 x 2.2 x 1.7 cm hyperechoic structure within the left he patic lobe may reflect a hemangioma. Mild hepatomegaly. Cysts within the right kidney as above. Reading Location: [id number]
== END | disposition home or self-care (01) ==
LOC: US 08:18
PROVIDERS: PCP Family Medicine
DX: R16.0 Hepatomegaly, not elsewhere classified (principal)
CPT/HCPCS: 76705

== ENCOUNTER → 2025-01-28 | Outpatient (CLI) | payer OTHER, SELFPAY ==
[2025-01-28 13:11] LABS: AST(SGOT) 19 U/L (<=37); Alanine Aminotransfer ALT/SGPT 28 U/L (<=46); Albumin, Serum 4.3 g/dL (3.5-5.0); Alkaline Phosphatase 61 U/L (40-129); Anion Gap 14 (5-15); BUN 14 mg/dL (4-19); BUN/Creat Ratio 16.9 RATIO (10-20); Calcium,Total 9.0 mg/dL (7.6-11.0); Carbon Dioxide 22.3 mmol/L (21.0-32.0); Chloride 106 mmol/L (98-108); Globulin 2.7 g/dL (2.2-4.2); Glucose 148 mg/dL (70-99); Hepatitis B Surface Antigen Nonreactive (Nonreactive); Potassium 4.0 mmol/L (3.3-5.1)
== END | disposition home or self-care (01) ==
LOC: MFPLAB 10:29
PROVIDERS: PCP Family Medicine
DX: R16.0 Hepatomegaly, not elsewhere classified (principal); N28.89 Other specified disorders of kidney and ureter
CPT/HCPCS: 36415; 80053; 86706; 86708; 87340